=== PATIENT | male | born 1975 | race Caucasian/White ===

== ENCOUNTER 2025-05-27 19:45 | Outpatient (OUT) | payer OTHER, SELFPAY | END 2025-05-27 19:46 | disposition home or self-care (01) | LOC: SLEEP 19:45 | PROVIDERS: PCP Otolaryngology; Visit Provider Otolaryngology | DX: G47.33 Obstructive sleep apnea (adult) (pediatric) (principal); G25.81 Restless legs syndrome; F51.01 Primary insomnia | CPT/HCPCS: 95810 ==

== ENCOUNTER 2025-07-02 19:44 | Outpatient (OUT) | payer OTHER, SELFPAY ==
--- OUTSIDE RECORDS SUMMARY | 2014-07-31 16:30 | XMS_ITS | Encounter Summary ---
Author Organization [facility] Address [address], [address] [place] [address] Care Team Providers Care Marketing Proposal Coordinator Name Role Phone Derrick Berrois MD Primary Care Provider Wisam ble Encounter Details Date Type Department Care Team (Late st Contact Info) Description 07/31/2014 4:30 PM EDT Hospital Encounter [facility] [address] [place] [address] Derrick Berrios [place] [address] [place] [id number] Social History Tobacco Use Types Packs/Day Years Used Date Smoking Tobacco: Never Smokeless Tobacco: Never Alcohol Use Standard Drinks/Week Comments No 0 (1 standard drink = 0.6 oz pur e alcohol) [facility] Utilities Answer Date Recorded In the past 12 months has [employer] electric, gas, oil, or water [employer] threatened to shut off services in your home? No 06/16/2025 Overall Financial Resource Strain (CARDIA) Answe r Date Recorded How hard is it for you to pa y for the very basics like food, housing, medical care, and heating? Not hard at all 04/09/2024 PHQ-2 Answer Date Recorded PHQ-9 Total Score 0 03/18/2025 Hunger Vital Sign Answer Date Recorded Within the past 12 months, y ou worried that your food would run out before you got the money to buy more. Never true 06/16/20 25 Within the past 12 months, t he food you bought just didn't last and you didn't have money to get more. Never true 06/16/2025 PRAPARE - Transportation Answer Date Re corded In the past 12 months, has l ack of transportation kept you from medical appointments or from getting medications? No 05/21 In the past 12 months, has l ack of transportation kept you from meetings, work, or from getting things needed for daily living? No 06/16/2025 Housing Stability Vital Sign Answer Maicol e Recorded Unable to Pay for Housing in the Last Year Not o n file 04/09/2024 Number of Places Lived in the Last Year Not on f ile 04/09/2024 In the last 12 months, was t here a time when you did not have a steady place to sleep or slept in a detention (including now)? No 04/09/2024 Housing Stability Vital Sign Answer Maicol e Recorded In the last 12 months, was t here a time when you were not able to pay the mortgage or rent on time? No 06/16/2025 In the past 12 months, how m any times have you moved where you were living? 0 06/16/2025 At any time in the past 12 m [facility], were you homeless or living in a detention (including now)? No 06/16/2025 Food Insecurity Answer Date Recorded Within the past 12 months, y ou worried that your food would run out before you got the money to buy more. 1 06/16/2025 Within the past 12 months, t he food you bought just didn't last and you didn't have money to get more. 1 06/16/2025 Interpersonal Safety Domain Source: IP Abuse Scr eening Answer Date Recorded Physical abuse Denies 06/17/2025 Verbal abuse Denies 06/17/2025 Emotional abuse Denies 06/17/2025 Financial abuse Denies 06/17/2025 Sexual abuse Denies 06/17/2025 Sex and Gender Information Value Date Recorded Sex Assigned at Not on file Legal Sex Male 6:35 PM EST Gender Identity Not on file Sexual Orientation Not on file COVID-19 Exposure Response Date Recorded In the last 10 days, have yo u been in contact with someone who was confirmed or suspected to have Coronavirus/COVID-19? No / Unsure 02/15/2022 7:32 PM EDT documented as of this encounter Plan of Treatment Upcoming Encounters Date Type Department Care Team (Late st Contact Info) Description 07/15/2025 3:20 PM EDT [facility] [address] [place] [address] Viviana Granados, COMPUTER ENGINEERING TECHNOLOGIST - EVIDENCE SPECIALIST [address] [place] [address] 4 mo f/u 07/25/2025 10:30 AM EDT Office Visit 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 Abdominal bloating documented as of this encounter Visit Diagnoses Not on filedocumented in this encounter Care Teams Marketing Proposal Coordinator Relationship Specialty Start Date End Date Derrick Berrios MD PCP - General Family Medicine 11/07/12 11/24/14 documented as of this encounter
--- OUTSIDE RECORDS SUMMARY | 2025-06-16 13:29 | XMS_ITS | Encounter Summary ---
Author Organization [employer] [facility] Address [address], [address] [place] [address] Care Team Providers Care Tire Service Technician Name Role Phone Derrick Ram MD Primary Care Provider + Reason for Visit * Reason Comments Vomiting Abdominal Pain Pt reports diffuse a bdominal pain started last night, worsening today, radiating up to left side of chest and shoulder. Hurts to take a deep breath. Pt reports he started vomiting today. * Auth/Cert (Routine) Specialty Diagnoses / Procedures Referred By Christina t Referred To Contact Diagnoses Small bowel obstruction (HCC) Kelsi Cameron MD [address] [place] [address] Phone: tel: fax: [employer] [address] [place] [address] Referral ID Status Reason Start Date Expiration Date Visits Re quested Visits Authorized [id number] 1 1 Encounter Details Date Type Department Care Team (Latest Contact Info) Description 06/16/2025 1:29 PM EDT - 06/18/2025 11:29 AM EDT Hospital Encounter [facility] [address] [id number] Ana Garcia MD [facility] [place] [phone] Kelsi Cameron MD [address] [place] [address] Aries Aragon DO [address] [place], [place] [id number] Small bowel obstruction (HCC) (Primary Dx) Discharge Disposition: Home or Self Care Social History Tobacco Use Types Packs/Day Years Used Date Smoking Tobacco: Never Smokeless Tobacco: Never Alcohol Use Standard Drinks/Week Comments No 0 (1 standard drink = 0.6 oz pur e alcohol) [facility] Utilities Answer Date Recorded In the past 12 months has th e electric, gas, oil, or water company threatened to shut off services in your [...] place to sleep or slept in a retirement (including now)? No 04/09/2024 Housing Stability Vital Sign Answer Maicol e Recorded In the last 12 months, was t here a time when you were not able to pay the mortgage or rent on time? No 06/16/2025 In the past 12 months, how m any times have you moved where you were living? 0 06/16/2025 At any time in the past 12 m [facility], were you homeless or living in a retirement (including now)? No 06/16/2025 Food Insecurity Answer [...] on file Sexual Orientation Not on file documented as of this encounter Last Filed Vital Signs Vital Sign Reading Time Taken Comments Blood Pressure 113/77 06/18/2025 8:49 AM EDT Pulse 71 06/18/2025 8:49 AM EDT Temperature 36.6 C (97.9 F) 06/18/2025 8:49 AM EDT Respiratory Rate 16 06/18/2025 8:49 AM EDT Oxygen Saturation 96% 06/18/2025 8:49 AM EDT Inhaled Oxygen Concentration - - Weight 110 kg (242 lb 8.1 oz) 06/18/2025 6:00 AM EDT Height 195.6 cm (6' 5 ) 06/16/2025 1:38 PM EDT Body Mass Index 28.76 06/16/2025 1:38 PM EDT documented in this encounter Discharge Summaries * Unique Bradley PA - 06/18/2025 8:00 AM EDT Images from the original note were not included. [facility] Office: [phone] Charlie Aragon DO, Osmin Duarte DO, Jose R Vines DO, Maxwell Juarez, DO, Yuko Solis MD, Janelle Leyva MD, Gus Bolivar MD, Sarah Ashton MD, Al Gardner MD, Juan De Luna MD, Fede Carroll MD, Bill Plummer, DO, Aries Aragon, DO, Michelle Guerra MD, Juan Carlos Phan, DO, Tiana Cardoza MD, Alma Rosa Bryan MD, Shree Hartley MD, Jaylen Rodriguez MD, Niraj Bruce MD,Ale Chatterjee MD, Elizabeth Dewitt MD, Camilo Delgadillo MD, Tulio Vega MD, Melo Lamb, DO,Renate Ho MD, Renee Alvarez DO, Vinicius Sinclair MD, Manoj Bang MD, Bill Mejia MD, Thelma Mejia MD, Erica Rosenberg MD, Susy Benton, BILINGUAL LOAN PROCESSOR, Beth Gómez, BILINGUAL LOAN PROCESSOR, Melo No, BILINGUAL LOAN PROCESSOR, Elizabeth Heredia, DNP, Nora Ron, BILINGUAL LOAN PROCESSOR, Brooke Sullivan, BILINGUAL LOAN PROCESSOR, Abida Concepcion, BILINGUAL LOAN PROCESSOR, Arianne Glover, BILINGUAL LOAN PROCESSOR, Amina Conklin PAJoelC, Loly Cifuentes, BILINGUAL LOAN PROCESSOR, Christie Corrales, BILINGUAL LOAN PROCESSOR, Christine Landry, BILINGUAL LOAN PROCESSOR, Zora Gutierrez, BILINGUAL LOAN PROCESSOR, Rosalino Stanton PA-C, Unique Bradley PAJoelC, Stefania Ely, BILINGUAL LOAN PROCESSOR, Sarika Dillon, [facility], Raissa Trujillo, BILINGUAL LOAN PROCESSOR,Sho Hand, BILINGUAL LOAN PROCESSOR [facility] IN-PATIENT SERVICE [facility] Discharge Summary Patient ID: Robert Moe : 1975 ACCOUNT: [id number] Patient's PCP: Derrick Ram MD Admit Date: 06/16/2025 Discharge Date: 06/18/2025 Length of Stay: 2 Code Status: Full Code Admitting Physician: Kelsi Cameron MD Discharge Physician: CHRIS Davis Active Discharge Diagnoses: Hospital Problem Lists: Principal Problem: Small bowel obstruction (HCC) Active Problems: HTN (hypertension), benign Resolved Problems: * No resolved hospital problems. * Admission Condition: poor Discharged Condition: good Hospital Stay: Hospital Course: Robert Moe is a 49 y.o. male who was admitted for the management of Small bowel obstruction (HCC) , presented to ER with Vomiting and Abdominal Pain (Pt reports diffuse abdominal pain started last night, worsening today, radiating up to left side of chest and shoulder. Hurts to take a deep breath. Pt reports he started vomiting today. ) 49 year old male presented to the emergency department with diffuse abdominal pain and emesis and was found to have small bowel obstruction. NGT was placed and patient had bowel rest. NGT was removedafter SBO resolved and slowly advanced diet with no issues. Following small bowel follow through patient had many bowel movements and flatus. Patient remained hemodynamically stable throughout stay. Patient is eager for discharge to home. Patient denies any other questions or concerns at this time. Significant therapeutic interventions: NGT, bowel rest Significant Diagnostic Studies: Labs: Hematology: Recent Labs 06/16/25141906/16/25 2235 06/17/25 0653 WBC 12.1* 7.8 7.0 RBC 6.44* 5.55 5.46 HGB 18.9* 16.4 16.0 HCT 55.7* 48.3 47.4 MCV 86.4 87.1 86.8 MCH 29.3 29.5 29.3 MCHC 33.9 33.9 33.7 RDW 14.6 14.4 14.7 PLT 231 203 191 MPV 8.3 8.3 8.3 Chemistry: Recent Labs 06/16/25 14206/17/25 0653 NA 136 140 K 4.5 3.9 CL 101 105 CO2 22 25 GLUCOSE 108* 100* BUN 20 20 CREATININE 1.1 1.1 MG 2.0 -- ANIONGAP 13 10 LABGLOM 83 83 CALCIUM 10.4 8.9 TROPHS <6 -- Recent Labs 06/16/25 14206/17/25 0653 AST 25 15 ALT 48 31 ALKPHOS 95 69 BILITOT 0.9 0.7 ABG:No results found for: POCPH , PHART , PH , POCPCO2 , FJL0TMJ , PCO2 , POCPO2 , PO2ART , PO2 , POCHCO3 , OKY9BVP , HCO3 , NBEA , PBEA , BEART , BE , THGBART , THB , VVU7OBV , [id number] , I8EXRIEI , O2SAT , FIO2 No results found for: SPECIAL No results found for: CULTURE Radiology: FL SMALL BOWEL FOLLOW THROUGH ONLY Result Date: 06/17/2025 1. Findings above which can be seen with partial small bowel obstruction or small-bowel ileus. Normal transit time to the terminal ileum. 2. Bibasilar atelectasis, right greater than left. 3. NG tubewith distal tip overlying the left upper quadrant likely within the body/fundus of the stomach. XR ABDOMEN (KUB) (SINGLE AP VIEW) Result Date: 06/16/2025 Interval enteric tube placement with tip in the gastric body region. Persistent small bowel obstruction. CT CHEST ABDOMEN PELVIS W CONTRAST Additional Contrast? None Result Date: 06/16/2025 1. Small bowel obstruction with possible transition point in the left lower quadrant of the abdomen. No obvious mass lesions are seen. 2. No acute cardiopulmonary process. 3. Scattered left-sided colonic diverticula. Consultations: Consults: Final Specialist Recommendations/Findings: IP CONSULT TO HOSPITALIST IP CONSULT TO GENERAL SURGERY The patient was seen and examined on day of discharge and this discharge summary is in conjunction with any daily progress note from day of discharge. Discharge plan: Disposition: Home Physician Follow Up: No follow-up provider specified. Requiring Further Evaluation/Follow Up POST HOSPITALIZATION/Incidental Findings: none Diet: regular diet Activity: As tolerated Instructions to Patient: Discharge Medications: Medication List ASK your doctor about these medications fluticasone 50 MCG/ACT nasal spray Commonly known as: FLONASE 2 sprays by Each Nostril route daily gabapentin 600 MG tablet Commonly known as: NEURONTIN TAKE 1 TABLET BY MOUTH 2 TIMES A DAY FOR 90 DAYS levocetirizine 5 MG tablet Commonly known as: XYZAL Take 1 tablet by mouth nightly lisinopril 5 MG tablet Commonly known as: PRINIVIL;ZESTRIL take 1 AND 1/2 tablets by mouth once daily multivitamin Tabs tablet omeprazole 20 MG delayed release capsule Commonly known as: PRILOSEC Take 1 capsule by mouth 2 times daily rOPINIRole 4 MG extended release tablet Commonly known as: REQUIP XL Take 1 tablet by mouth nightly sertraline 50 MG tablet Commonly known as: ZOLOFT Take 1 tablet by mouth daily Time spent on discharge is 31 mins in patient examination, evaluation, counseling as well as medication reconciliation, prescriptions for required medications, discharge plan and follow up. Electronically signed by CHRIS Davis 06/18/2025 8:01 AM Thank you Derrick Blood MD for the opportunity to be involved in this patient's care. Cosigned by Aries Aragon DO at 06/18/2025 11:58 AM EDT documented in this encounter Medications at Time of Discharge Multiple Vitamin (MULTIVITAMIN) TABS tablet Take 1 tablet by mouth daily levocetirizine (XYZAL) 5 MG tabletIndications :Seasonal allergic reaction Take 1 tablet by mouth nightly 90 tablet 1 04/22/2025 10/19/2025 gabapentin (NEURONTIN) 600 MG tabletIndications :RLS (restless legs syndrome),Numbnes s and tingling of both legs TAKE 1 TABLET BY MOUTH 2 TIMES A DAY FOR 90 DAYS 180 tablet 04/15/2025 10/12/2025 lisinopril (PRINIVIL;ZESTRIL ) 5 MG tabletIndications :HTN (hypertension), benign take 1 AND 1/2 tablets by mouth once daily 135 tablet 03/18/2025 omeprazole (PRILOSEC) 20 MG delayed release capsuleIndication s:Right upper quadrant abdominal pain,Flatulence, eructation and gas pain Take 1 capsule by mouth 2 times daily 180 capsule 1 03/18/2025 09/14/2025 documented as of this encounter Progress Notes * Unique Bradley PA - 06/18/2025 7:32 AM EDT Images from the original note were not included. [facility] Office: [phone] Charlie Aragon DO, Osmin Duarte DO, Jose R Vines DO, Maxwell Juarez DO, Yuko Solis MD, Janelle Leyva MD, Gus Bolivar MD, Sarah Ashton MD, Al Gardner MD, Juan De Luna MD, Fede Carroll MD, Bill Plummer DO, Aries Aragon DO, Michelle Guerra MD, Juan Carlos Phan DO, Tiana Cardoza MD, Alma Rosa Bryan MD, Shree Hartley MD, Jaylen Rodriguez MD, Niraj Bruce MD,Ale Chatterjee MD, Elizabeth Dewitt MD, Camilo Delgadillo MD, Tulio Vega MD, Melo Lamb DO,Renate Ho MD, Renee Alvarez DO, Vinicius Sinclair MD, Manoj Bang MD, Bill Mejia MD, Thelma Mejia MD, Erica Rosenberg MD, Susy Benton, BILINGUAL LOAN PROCESSOR, Beth Gómez, BILINGUAL LOAN PROCESSOR, Melo No, BILINGUAL LOAN PROCESSOR, Elizabeth Heredia, [facility], Nora Ron, BILINGUAL LOAN PROCESSOR, Brooke Sullivan, BILINGUAL LOAN PROCESSOR, Abida Concepcion, BILINGUAL LOAN PROCESSOR, Arianne Glover, BILINGUAL LOAN PROCESSOR, Amina Conklin, PA-C, Loly Cifuentes, BILINGUAL LOAN PROCESSOR, Christie Corrales, BILINGUAL LOAN PROCESSOR, Christine Landry, BILINGUAL LOAN PROCESSOR, Zora Gutierrez, BILINGUAL LOAN PROCESSOR, Rosalino Stanton, PA-C, Unique Bradley, PA-C, Stefania Ely, BILINGUAL LOAN PROCESSOR, Sarika Dillon, FLEET MAINTENANCE MANAGER, Raissa Trujillo, BILINGUAL LOAN PROCESSOR,Sho Hand, BILINGUAL LOAN PROCESSOR [facility] IN-PATIENT SERVICE [facility] Progress Note 06/18/2025 7:32 AM Name: Robert Moe Acct: [id number] Room: [address] [place] [address] Day: 2 Admit Date: 06/16/2025 1:29 PM PCP: Derrick Ram MD Code Status: Full Code Subjective: 49 year old male with past medical history of anxiety, hypertension and restless legs syndrome who presented to the emergency department with diffuse abdominal pain and 2 episodes of emesis is admitted to the hospital for the management of small bowel obstruction. Patient does have a history of cholecystectomy in February 2024. Patient seen and examined at bedside, patient denies any concerns at this time, patient is eager for discharge. Patient has been tolerating liquid diet and is ready to advance diet to solids. Patientstates he did eat yvonne bread last night with no issues. Patient reports passing gas throughout the night. Patient denies any chest pain, shortness of breath, abdominal pain or calf pain. Patient denies any questions or concerns at this time. Patient is understanding and agreeable to plan. Medications: Allergies: Allergies Allergen Reactions Codeine Current Meds: Scheduled Meds: sodium chloride 80 mL IntraVENous Once gabapentin 600 mg Oral BID cetirizine 5 mg Oral Daily lisinopril 7.5 mg Oral Daily pantoprazole 40 mg Oral QAM AC rOPINIRole 4 mg Oral Nightly sertraline 50 mg Oral Daily sodium chloride flush 5-40 mL IntraVENous 2 times per day enoxaparin 30 mg SubCUTAneous BID LORazepam 0.5 mg IntraVENous Once Continuous Infusions: sodium chloride PRN Meds: diatrizoate meglumine-sodium, fluticasone, morphine, sodium chloride flush, sodium chloride, potassium chloride OR potassium alternative oral replacement OR potassium chloride, magnesium sulfate, ondansetron OR ondansetron, polyethylene glycol, acetaminophen OR acetaminophen Data: Vitals: BP 118/77 Pulse 82 Temp 98.4 ??F (36.9 ??C) (Oral) Resp 16 Ht 1.956 m (6' 5 ) Wt 110 kg (242 lb 8.1 oz) SpO2 97% BMI 28.76 kg/m?? Temp (24hrs), Av.6 ??F (37 ??C), Min:98.4 ??F (36.9 ??C), Max:98.8 ??F (37.1 ??C) No results for input(s): POCGLU in the last 72 hours. I/O (24Hr): Intake/Output Summary (Last 24 hours) at 06/18/2025 0732 Last data filed at 06/18/2025 0637 Gross per 24 hour Intake 1020 ml Output -- Net 1020 ml Labs: Hematology: Recent Labs 06/16/25 1420 06/16/25 2235 06/17/25 0653 WBC 12.1* 7.8 7.0 RBC 6.44* 5.55 5.46 HGB 18.9* 16.4 16.0 HCT 55.7* 48.3 47.4 MCV 86.4 87.1 86.8 MCH 29.3 29.5 29.3 MCHC 33.9 33.9 33.7 RDW 14.6 14.4 14.7 PLT 231 203 191 MPV 8.3 8.3 8.3 Chemistry: Recent Labs 06/16/25 1420 06/17/25 0653 NA 136 140 K 4.5 3.9 CL 101 105 CO2 22 25 GLUCOSE 108* 100* BUN 20 20 CREATININE 1.1 1.1 MG 2.0 -- ANIONGAP 13 10 LABGLOM 83 83 CALCIUM 10.4 8.9 TROPHS <6 -- Recent Labs 06/16/25 1420 06/17/25 0653 AST 25 15 ALT 48 31 ALKPHOS 95 69 BILITOT 0.9 0.7 ABG:No results found for: POCPH , PHART , PH , POCPCO2 , PLY0CGX , PCO2 , POCPO2 , PO2ART , PO2 , POCHCO3 , FXK9YCY , HCO3 , NBEA , PBEA , BEART , BE , THGBART , THB , SOK0VQH , [id number] , [id number] , O2SAT , FIO2 No results found for: SPECIAL No results found for: CULTURE Radiology: FL SMALL BOWEL FOLLOW THROUGH ONLY Result Date: 06/17/2025 1. Findings above which can be seen with partial small bowel obstruction or small-bowel ileus. Normal transit time to the terminal ileum. 2. Bibasilar atelectasis, right greater than left. 3. NG tubewith distal tip overlying the left upper quadrant likely within the body/fundus of the stomach. XR ABDOMEN (KUB) (SINGLE AP VIEW) Result Date: 06/16/2025 Interval enteric tube placement with tip in the gastric body region. Persistent small bowel obstruction. CT CHEST ABDOMEN PELVIS W CONTRAST Additional Contrast? None Result Date: 06/16/2025 1. Small bowel obstruction with possible transition point in the left lower quadrant of the abdomen. No obvious mass lesions are seen. 2. No acute cardiopulmonary process. 3. Scattered left-sided colonic diverticula. Physical Examination: General appearance: alert, cooperative and no distress Mental Status: oriented to person, place and time and normal affect Lungs: clear to auscultation bilaterally, normal effort Heart: regular rate and rhythm, no murmur Abdomen: soft, nontender, nondistended, normal bowel sounds Extremities: no edema, redness, tenderness in the calves Skin: no gross lesions, rashes, induration Assessment: Hospital Problems Last Modified POA * (Principal) Small bowel obstruction (HCC) 06/16/2025 Yes HTN (hypertension), benign 06/17/2025 Yes Plan: Partial small bowel obstruction Resolved; Advance diet as tolerated General Surgery following Antiemetics and pain control as needed Continue to monitor intake/output Continue to encourage ambulation Essential hypertension Continue lisinopril Anxiety/depression Continue home medications RLS Continue Requip GERD Continue PPI Seasonal allergies Continue home medications DVT/PE prophylaxis: Lovenox Will plan to discharge home today if okay by general surgery Medical Decision Making: CHRIS Lau 06/18/2025 7:32 AM Cosigned by Aries Aragon DO at 06/18/2025 11:58 AM EDT Associated attestation - Aries Aragon DO - 06/18/2025 11:58 AM EDT Attending Supervising Physician's Attestation Statement The patient is a 49 y.o. male. I have performed a physical examination of the patient. I discussed the case with the physician hospital clinic assistant. Chart reviewed. I have personally seen the patient and completed a physical exam. Laboratory data, imaging review. Vitals are as follow: Vitals: 06/17/25 1101 06/17/25 2111 06/18/25 0600 06/18/25 0849 BP: 129/87 118/77 113/77 Pulse: 81 82 71 Resp: 16 16 16 Temp: 98.8 ??F (37.1 ??C) 98.4 ??F (36.9 ??C) 97.9 ??F (36.6 ??C) TempSrc: Oral Oral Oral SpO2: 94% 97% 96% Weight: 110 kg (242 lb 8.1 oz) Height: Patient seen and examined, case discussed with physician hospital clinic assistant. Patient's at the bedside. Case also discussed with general surgery. Patient is doing very well and tolerating a diet. At this point in time he can be discharged home with outpatient follow-up. Impression/Plan Partial small bowel obstruction Resolved Diet as tolerated Essential hypertension Continue lisinopril Anxiety/depression Continue home medications Restless leg syndrome Continue Requip Gastroesophageal reflux disease Continue PPI Discharge home * Ivett Mayo PT - 06/17/2025 11:40 AM EDT Images from the original note were not included. Physical Therapy Physical Therapy Cancel Note DATE: 06/17/2025 NAME: Robert Moe : 1975 Patient not seen this date for Physical Therapy due to: Per OT, pt up independent in room and bathroom. Pt denies concerns and is at baseline functional level with no acute PT needs. D/C PT * Hailee Hu OT - 06/17/2025 11:36 AM EDT Images from the original note were not included. Occupational Therapy [facility] Occupational Therapy Not Seen Note DATE: 06/17/2025 NAME: Robert Moe : 1975 Patient not seen this date for Occupational Therapy due to: Screen this date with Pt up in bathroom IND upon room entry. Patient at baseline functional level with no acute OT needs. Will defer OT evaluation at this time. Please reorder OT if future needs arise. * Jaya Zhao - 06/17/2025 11:30 AM EDT 06/17/25 1130 Encounter Summary Service Provided For Patient Last Encounter 06/17/25 Spiritual/Emotional needs Type (volunteer) * Unique Bradley PA - 06/17/2025 8:12 AM EDT Images from the original note were not included. [facility] Office: [phone] Charlie Aragon DO, Osmin Duarte DO, Jose R Vines DO, Maxwell Juarez DO, Yuko Solis MD, Janelle Leyva MD, Gus Bolivar MD, Sarah Ashton MD, Al Gardner MD, Juan De Luna MD, Fede Carroll MD, Bill Plummer DO, Aries Aragon DO, Michelle Guerra MD, Juan Carlos Phan DO, Tiana Cardoza MD, Alma Rosa Bryan MD, Shree Hartley MD, Jaylen Rodriguez MD, Niraj Bruce MD,Ale Chatterjee MD, Elizabeth Dewitt MD, Camilo Delgadillo MD, Tulio Vega MD, Melo Lamb DO,Renate Ho MD, Renee Alvarez DO, Vinicius Sinclair MD, Manoj Bang MD, Bill Mejia MD, Thelma Mejia MD, Erica Rosenberg MD, Susy Benton CNP, Beth Gómez CNP, Melo No, BILINGUAL LOAN PROCESSOR, Elizabeth Heredia, LUL, Nora Ron, BILINGUAL LOAN PROCESSOR, Brooke Sullivan, BILINGUAL LOAN PROCESSOR, Abida Concepcion, BILINGUAL LOAN PROCESSOR, Arianne Glover BILINGUAL LOAN PROCESSOR, CONRAD GillespieC, Loly Cifuentes, BILINGUAL LOAN PROCESSOR, Christie Corrales, BILINGUAL LOAN PROCESSOR, Christine Landyr, BILINGUAL LOAN PROCESSOR, Zora Gutierrez, BILINGUAL LOAN PROCESSOR, CONRAD RamosC, Unique Bradley PA-C, Stefania Ely, BILINGUAL LOAN PROCESSOR, Sarika Dillon, FLEET MAINTENANCE MANAGER, Raissa Trujillo CNP, Sho Hand CNP [facility] IN-PATIENT SERVICE [facility] Progress Note 06/17/2025 8:13 AM Name: Robert Moe Acct: [id number] Room: 316/316-01 Day: 1 Admit Date: 06/16/2025 1:29 PM PCP: Derrick Ram MD Code Status: Full Code Subjective: 49 year old male with past medical history of anxiety, hypertension and restless legs syndrome who presented to the emergency department with diffuse abdominal pain and 2 episodes of emesis is admitted to the hospital for the management of small bowel obstruction. Patient does have a history of cholecystectomy in February 2024. Patient seen and examined in room, family at bedside, patient is eager to have NG tube removed. Patient states he has had diarrhea multiple times following small bowel follow-through today. Patient states he was passing gas prior to small bowel follow-through, has not since. Patient denies any headache, chest pain, abdominal pain or shortness of breath. Patient denies any other questions or concerns at this time. Patient is understanding and agreeable to plan. Medications: Allergies: Allergies Allergen Reactions Codeine Current Meds: Scheduled Meds: sodium chloride 80 mL IntraVENous Once gabapentin 600 mg Oral BID cetirizine 5 mg Oral Daily lisinopril 7.5 mg Oral Daily pantoprazole 40 mg Oral QAM AC rOPINIRole 4 mg Oral Nightly sertraline 50 mg Oral Daily sodium chloride flush 5-40 mL IntraVENous 2 times per day enoxaparin 30 mg SubCUTAneous BID LORazepam 0.5 mg IntraVENous Once Continuous Infusions: sodium chloride sodium chloride 75 mL/hr at 06/16/252048 PRN Meds: fluticasone, morphine, sodium chloride flush, sodium chloride, potassium chloride OR potassium alternative oral replacement OR potassium chloride, magnesium sulfate, ondansetron OR ondansetron, polyethylene glycol, acetaminophen OR acetaminophen Data: Vitals: BP 104/69 Pulse 81 Temp 98.8 ??F (37.1 ??C) (Oral) Resp 16 Ht 1.956 m (6' 5 ) Wt 108 kg (238 lb 1.6 oz) SpO2 93% BMI 28.23 kg/m?? Temp (24hrs), Av ??F (37.2 ??C), Min:98.8 ??F (37.1 ??C), Max:99.1 ??F (37.3 ??C) No results for input(s): POCGLU in the last 72 hours. I/O (24Hr): Intake/Output Summary (Last 24 hours) at 06/17/2025 0813 Last data filed at 06/17/2025 0627 Gross per 24 hour Intake 1000 ml Output 700 ml Net 300 ml Labs: Hematology: Recent Labs 06/16/25 1420 06/16/25 2235 06/17/25 0653 WBC 12.1* 7.8 7.0 RBC 6.44* 5.55 5.46 HGB 18.9* 16.4 16.0 HCT 55.7* 48.3 47.4 MCV 86.4 87.1 86.8 MCH 29.3 29.5 29.3 MCHC 33.9 33.9 33.7 RDW 14.6 14.4 14.7 PLT 231 203 191 MPV 8.3 8.3 8.3 Chemistry: Recent Labs 06/16/25 1420 06/17/25 0653 NA 136 140 K 4.5 3.9 CL 101 105 CO2 22 25 GLUCOSE 108* 100* BUN 20 20 CREATININE 1.1 1.1 MG 2.0 -- ANIONGAP 13 10 LABGLOM 83 83 CALCIUM 10.4 8.9 TROPHS <6 -- Recent Labs 06/16/25 1420 06/17/25 0653 AST 25 15 ALT 48 31 ALKPHOS 95 69 BILITOT 0.9 0.7 ABG:No results found for: POCPH , PHART , PH , POCPCO2 , IVU7SVD , PCO2 , POCPO2 , PO2ART , PO2 , POCHCO3 , [id number] , HCO3 , NBEA , PBEA , BEART , BE , THGBART , THB , QAJ3SDA , PLQQ0EIZ , M1OYPAWR , O2SAT , FIO2 No results found for: SPECIAL No results found for: CULTURE Radiology: XR ABDOMEN (KUB) (SINGLE AP VIEW) Result Date: 06/16/2025 Interval enteric tube placement with tip in the gastric body region. Persistent small bowel obstruction. CT CHEST ABDOMEN PELVIS W CONTRAST Additional Contrast? None Result Date: 06/16/2025 1. Small bowel obstruction with possible transition point in the left lower quadrant of the abdomen. No obvious mass lesions are seen. 2. No acute cardiopulmonary process. 3. Scattered left-sided colonic diverticula. Physical Examination: General appearance: alert, cooperative and no distress, NGT secured at nare on intermittent suction Mental Status: oriented to person, place and time and normal affect Lungs: clear to auscultation bilaterally, normal effort Heart: regular rate and rhythm, no murmur Abdomen: soft, nontender, nondistended, normal bowel sounds, no masses Extremities: no edema, redness, tenderness in the calves Skin: no gross lesions, rashes, induration Assessment: Hospital Problems Last Modified POA * (Principal) Small bowel obstruction (HCC) 06/16/2025 Yes Plan: Small bowel obstruction NPO; continue bowel rest today; advance diet per general surgery CT showed small bowel obstruction with possible transition point in the left lower quadrant of the abdomen Small bowel follow-through per general surgery; showed partial small bowel obstruction or small bowel ileus, normal transit time to the terminal ileum General surgery consulted; appreciate recommendations NG tube decompression with low wall intermittent suction Antiemetics and pain control as needed Serial abdominal exams Monitor daily labs Continue to monitor intake/output Continue to encourage ambulation Essential hypertension Continue lisinopril Anxiety/depression Continue home medications RLS Continue Requip GERD Continue PPI Seasonal allergies Continue home medications DVT/PE prophylaxis: Lovenox Medical Decision Making: CHRIS Lau 06/17/2025 8:13 AM Cosigned by Aries Aragon DO at 06/17/2025 1:08 PM EDT Associated attestation - Aries Aragon DO - 06/17/2025 1:08 PM EDT Attending Supervising Physician's Attestation Statement The patient is a 49 y.o. male. I have performed a physical examination of the patient. I discussed the case with the physician hospital clinic assistant. Chart reviewed. I have personally seen the patient and completed a physical exam. Laboratory data, imaging review. Vitals are as follow: Vitals: 06/17/25 0011 06/17/25 0600 06/17/25 1050 06/17/25 1101 BP: 104/69 129/87 Pulse: 81 81 Resp: 16 18 16 Temp: 98.8 ??F (37.1 ??C) 98.8 ??F (37.1 ??C) TempSrc: Oral SpO2: 93% 94% Weight: 108 kg (238 lb 1.6 oz) Height: Patient seen and examined. at the bedside. Multiple questions answered. Small bowel follow-through reviewed. Case discussed with surgery. At this point in time as contrast has progressed to the terminal ileum we will discontinue NG tube. Will advance diet and I anticipate he can be discharged home tomorrow. Impression/Plan Partial small bowel obstruction Clinically resolved Small bowel follow-through reviewed Ileus secondary to above Continue liquid diet, advance diet as tolerated Essential hypertension Continue lisinopril Anxiety/depression Continue home medications Restless leg syndrome Continue Requip Gastroesophageal reflux disease Continue PPI * Сергей Gomez IV, - 06/17/2025 6:50 AM EDT Images from the original note were not included. General Surgery: Daily Progress Note PATIENT NAME: Robert Moe TODAY'S DATE: 06/17/2025, 6:51 AM CC: Abdominal pain SUBJECTIVE: Patient seen and examined at bedside this morning. No acute events overnight. Patient is nondistressed. Patient is afebrile, hemodynamically stable, on room air. NGT is secured at nare on intermittent suction. Approximately 700 cc of green fluid observed in canister. Patient does endorse flatus. Denies bowel movements or nausea. Patient is ambulating. OBJECTIVE: VITALS: BP 104/69 Pulse 81 Temp 98.8 ??F (37.1 ??C) (Oral) Resp 16 Ht 1.956 m (6' 5 ) Wt 108 kg (238 lb 1.6 oz) SpO2 93% BMI 28.23 kg/m?? INTAKE/OUTPUT: Intake/Output Summary (Last 24 hours) at 06/17/2025 0651 Last data filed at 06/17/2025 0627 Gross per 24 hour Intake 1000 ml Output 700 ml Net 300 ml PHYSICAL EXAM: General Appearance: Lying comfortably in bed. No acute distress. HEENT: Atraumatic. Normocephalic. NGT secured at nare on intermittent suction. Heart: RRR. Nontachycardic. Lungs: Normal work of breathing. On room air. Abdomen: Soft, nondistended, nontender. Nonperitonitic. Extremities: Moving all extremities. Skin: Well-perfused. Psych: Appropriate. Radiology Review: XR ABDOMEN (KUB) (SINGLE AP VIEW) Result Date: 06/16/2025 Interval enteric tube placement with tip in the gastric body region. Persistent small bowel obstruction. CT CHEST ABDOMEN PELVIS W CONTRAST Additional Contrast? None Result Date: 06/16/2025 1. Small bowel obstruction with possible transition point in the left lower quadrant of the abdomen. No obvious mass lesions are seen. 2. No acute cardiopulmonary process. 3. Scattered left-sided colonic diverticula. ASSESSMENT: Active Hospital Problems Diagnosis Date Noted Small bowel obstruction (HCC) [K56.609] 06/16/2025 49 y.o. male who presented to the ED with abdominal pain with CT demonstrating small bowel obstruction. Plan: Patient doing well this morning. Abdominal exam is benign. Pain is controlled. 700 cc of green fluid in NGT canister. Will continue bowel rest today and order a small bowel follow-through. NPO. Lovenox for DVT prophylaxis. Continue to monitor intake/output. Continue to encourage ambulation. Monitor vital signs per unit standard. Attending Physician Statement I have discussed the case with Dr Reed, including pertinent history and exam findings with the resident. I have seen and examined the patient and the cintron elements of the encounter have been performed by me. I agree with the assessment, plan and orders as documented by the resident. Small bowel follow through was negative for complete obstruction. Patient had copious bowel movements today. Tolerated clears. Will advance to full liquids. Anticipate discharge home tomorrow. documented in this encounter Plan of Treatment Upcoming Encounters Date Type Department Care Team (Late st Contact Info) Description 07/15/2025 3:20 PM EDT Office Visit [facility] [address] [facility] 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 Abdominal bloating documented as of this encounter Procedures Procedure Name Priority Date/Time Associated Diagnosis Comments FL SMALL BOWEL FOLLOW THROUGH ONLY Routine 06/17/2025 9:24 AM EDT COMPREHENSIVE METABOLIC PANEL W/ REFLEX TO MG FOR LOW K STAT 06/17/2025 6:53 AM EDT CBC WITH AUTO DIFFERENTIAL STAT 06/17/2025 6:53 AM EDT CBC WITH AUTO DIFFERENTIAL Routine 06/16/2025 10:35 PM EDT XR ABDOMEN (KUB) (SINGLE AP VIEW) STAT 06/16/2025 7:[address] CHEST ABDOMEN PELVIS W CONTRAST STAT 06/16/2025 3:36 PM EDT CBC WITH AUTO DIFFERENTIAL STAT 06/16/2025 2:20 PM EDT TROPONIN STAT 06/16/2025 2:20 PM EDT MAGNESIUM STAT 06/16/2025 2:20 PM EDT LACTIC ACID STAT 06/16/2025 2:20 PM EDT COMPREHENSIVE METABOLIC PANEL STAT 06/16/2025 2:20 PM EDT EKG 12-LEAD STAT 06/16/2025 1:52 PM EDT documented in this encounter Results * FL SMALL BOWEL FOLLOW THROUGH ONLY (06/17/2025 9:24 AM EDT) Anatomical Region Laterality Modality Abdomen Computed Radiogr aphy 06/17/2025 9:27 AM EDT Impressions 06/17/2025 9:31 AM EDT 1. Findings above which can be seen with partial small bowel obstruction or small-bowel ileus. Normal transit time to the terminal ileum. 2. Bibasilar atelectasis, right greater than left. 3. NG tube with distal tip overlying the left upper quadrant likely within the body/fundus of the stomach. Narrative 06/17/2025 9:31 AM EDT EXAMINATION: SMALL BOWEL FOLLOW THROUGH SERIES 06/17/2025 TECHNIQUE: Small bowel follow through series was performed with overhead images. FLUOROSCOPY DOSE AND TYPE: Fluoro time: 0 Dose: 0 COMPARISON: Abdominal KUB from 06/16/2025, CT abdomen pelvis from 06/16/2025 HISTORY: ORDERING SYSTEM PROVIDED HISTORY: SBO TECHNOLOGIST PROVIDED HISTORY: SBO Reason for Exam: SBO, vomiting and abdominal pain 49-year-old male with small-bowel obstruction, vomiting, and abdominal pain FINDINGS: Computer Systems Technician image of the abdomen demonstrates mild gas and stool scattered throughout the visualized colonic segments. No abnormally dilated small bowel loops. Psoas shadows symmetric in appearance. NG tube traverses the GE junction with distal tip overlying the left upper quadrant likely within the body/fundus of the stomach. Bibasilar atelectasis, right greater than left. At 0 minutes, contrast is seen opacifying the stomach, duodenal C-loop and proximal small bowel/jejunal loops. At 15 minutes, contrast is seen opacifying the majority of the small bowel. Dilated small bowel loops with prominence of the valvuli conniventes are seen within the lower abdomen/upper pelvis. These measure up to 3.9 cm in caliber. At 30 minutes, there is further migration of contrast into small bowel loops. At 45 minutes, contrast is seen opacifying the stomach, entirety of the small bowel, and entirety of the colon to the level of the rectum. Small amount of contrast is seen distending the urinary bladder. There is normal transit time to the terminal ileum. No focal abnormality or stricture of the small bowel identified. Procedure Note Bulmaro Mckee MD - 06/17/2025 EXAMINATION: SMALL BOWEL FOLLOW THROUGH SERIES 06/17/2025 TECHNIQUE: Small bowel follow through series was performed with overhead images. FLUOROSCOPY DOSE AND TYPE: Fluoro time: 0 Dose: 0 COMPARISON: Abdominal KUB from 06/16/2025, CT abdomen pelvis from 06/16/2025 HISTORY: ORDERING SYSTEM PROVIDED HISTORY: SBO TECHNOLOGIST PROVIDED HISTORY: SBO Reason for Exam: SBO, vomiting and abdominal pain 49-year-old male with small-bowel obstruction, vomiting, and abdominalpain FINDINGS: Computer Systems Technician image of the abdomen demonstrates mild gas and stool scattered throughout the visualized colonic segments. No abnormally dilated small bowel loops. Psoas shadows symmetric in appearance. NG tube traversesthe GE junction with distal tip overlying the left upper quadrant likelywithin the body/fundus of the stomach. Bibasilar atelectasis, right greaterthan left. At 0 minutes, contrast is seen opacifying the stomach, duodenal C-loopand proximal small bowel/jejunal loops. At 15 minutes, contrast is seen opacifying the majority of the smallbowel. Dilated small bowel loops with prominence of the valvuli conniventes areseen within the lower abdomen/upper pelvis. These measure up to 3.9 cm incaliber. At 30 minutes, there is further migration of contrast into small bowelloops. At 45 minutes, contrast is seen opacifying the stomach, entirety of thesmall bowel, and entirety of the colon to the level of the rectum. Small amountof contrast is seen distending the urinary bladder. There is normal transit time to the terminal ileum. No focal abnormalityor stricture of the small bowel identified. IMPRESSION: 1. Findings above which can be seen with partial small bowel obstructionor small-bowel ileus. Normal transit time to the terminal ileum. 2. Bibasilar atelectasis, right greater than left. 3. NG tube with distal tip overlying the left upper quadrant likelywithin the body/fundus of the stomach. Dominick Reed DO IMG FLUOROSCOPY ORDERABLES Fi nal Result * (ABNORMAL) CBC with Auto Differential (06/17/2025 6:53 AM EDT) [facility] WBC 7.0 3.5 - 11.0 k/uL 06/17/2025 6:53 AM [facility] RBC 5.46 4.5 - 5.9 m/uL 06/17/2025 6:53 AM [facility] Hemoglobin 16.0 13.5 - 17.5 g/dL 06/17/2025 6:53 AM [facility] Hematocrit 47.4 41 - 53 % 06/17/2025 6:53 AM [facility] MCV 86.8 80 - 100 fL 06/17/2025 6:53 AM [facility] MCH 29.3 26 - 34 pg 06/17/2025 6:53 AM [facility] MCHC 33.7 31 - 37 g/dL 06/17/2025 6:53 AM [facility] RDW 14.7 12.5 - 15.4 % 06/17/2025 6:53 AM [facility] Platelets 191 140 - 450 k/uL 06/17/2025 6:53 AM [facility] MPV 8.3 6.0 - 12.0 fL 06/17/2025 6:53 AM [facility] Neutrophils % 66 36 - 66 % 06/17/2025 6:53 AM [facility] Lymphocytes % 22(L) 24 - 44 % 06/17/2025 6:53 AM EDT [facility] Monocytes % 8 2 - 11 % 06/17/2025 6:53 AM EDT [facility] Eosinophils % 3 1 - 4 % 06/17/2025 6:53 AM EDT [facility] Basophils % 1 0 - 2 % 06/17/2025 6:53 AM EDT [facility] Neutrophils Absolute 4.60 1.8 - 7.7 k/uL 06/17/2025 6:53 AM EDT [facility] Lymphocytes Absolute 1.50 1.0 - 4.8 k/uL 06/17/2025 6:53 AM EDT [facility] Monocytes Absolute 0.60 0.1 - 1.2 k/uL 06/17/2025 6:53 AM EDT [facility] Eosinophils Absolute 0.20 0.0 - 0.4 k/uL 06/17/2025 6:53 AM EDT [facility] Basophils Absolute 0.10 0.0 - 0.2 k/uL 06/17/2025 6:53 AM EDT [facility] Blood BLOOD SPECIMEN / Unknown 06/17/2025 6:53 AM EDT 06/17/2025 6:54 AM EDT us Kelsi Cameron MD HEMATOLOGY ORDERABLES [place] [address], [facility] [phone] [facility] [address] [place] [address], [facility] [phone] * (ABNORMAL) Comprehensive Metabolic Panel w/ Reflex to MG (06/17/2025 6:53 AM EDT) Sodium 140 136 - 145 mmol/L 06/17/2025 6:53 AM EDT [facility] Potassium 3.9 3.7 - 5.3 mmol/L 06/17/2025 6:53 AM [facility] Chloride 105 98 - 107 mmol/L 06/17/2025 6:53 AM [facility] CO2 25 20 - 31 mmol/L 06/17/2025 6:53 AM [facility] Anion Gap 10 9 - 16 mmol/L 06/17/2025 6:53 AM [facility] Glucose 100(H) 74 - 99 mg/dL 06/17/2025 6:53 AM [facility] BUN 20 6 - 20 mg/dL 06/17/2025 6:53 AM [facility] Creatinine 1.1 0.7 - 1.2 mg/dL 06/17/2025 6:53 AM [facility] Est, Glom Filt Rate 83 >60 mL/min/1.7 3m2 06/17/2025 6:53 AM [facility] Comment: These results are not intended for use in patients <18 years of age. eGFR results are calculated without a race factor using the 2020 CKD-EPI equation. Careful clinical correlation is recommended, particularly when comparing to results calculated using previous equations. The CKD-EPI equation is less accurate in patients with extremes of muscle mass, extra-renal metabolism of creatine, excessive creatine ingestion, or following therapy that affects renal tubular secretion. Calcium 8.9 8.6 - 10.4 mg/dL 06/17/2025 6:53 AM [facility] Total Protein 6.7 6.6 - 8.7 g/dL 06/17/2025 6:53 AM [facility] Albumin 4.0 3.5 - 5.2 g/dL 06/17/2025 6:53 AM [facility] Albumin/Globulin Ratio 1.5 1.0 - 2.5 06/17/2025 6:53 AM [facility] Total Bilirubin 0.7 0.0 - 1.2 mg/dL 06/17/2025 6:53 AM [facility] Alkaline Phosphatase 69 40 - 129 U/L 06/17/2025 6:53 AM EDT [facility] ALT 31 10 - 50 U/L 06/17/2025 6:53 AM EDT [facility] AST 15 10 - 50 U/L 06/17/2025 6:53 AM EDT [facility] Blood BLOOD SPECIMEN / Unknown 06/17/2025 6:53 AM EDT 06/17/2025 6:54 AM EDT us Kelsi Cameron MD CHEMISTRY ORDERABLES [place] [address], [facility] [phone] [facility] [address] [place] [address], [facility] [phone] * (ABNORMAL) CBC with Auto Differential (06/16/2025 10:35 PM EDT) WBC 7.8 3.5 - 11.0 k/uL 06/16/2025 10:35 PM EDT [facility] RBC 5.55 4.5 - 5.9 m/uL 06/16/2025 10:35 PM EDT [facility] Hemoglobin 16.4 13.5 - 17.5 g/dL 06/16/2025 10:35 PM EDT [facility] Hematocrit 48.3 41 - 53 % 06/16/2025 10:35 PM EDT [facility] MCV 87.1 80 - 100 fL 06/16/2025 10:35 PM EDT [facility] MCH 29.5 26 - 34 pg 06/16/2025 10:35 PM EDT [facility] MCHC 33.9 31 - 37 g/dL 06/16/2025 10:35 PM EDT [facility] RDW 14.4 12.5 - 15.4 % 06/16/2025 10:35 PM EDT [facility] Platelets 203 140 - 450 k/uL 06/16/2025 10:35 PM EDT [facility] MPV 8.3 6.0 - 12.0 fL 06/16/2025 10:35 PM EDT [facility] Neutrophils % 72(H) 36 - 66 % 06/16/2025 10:35 PM EDT [facility] Lymphocytes % 18(L) 24 - 44 % 06/16/2025 10:35 PM EDT [facility] Monocytes % 8 2 - 11 % 06/16/2025 10:35 PM EDT [facility] Eosinophils % 2 1 - 4 % 06/16/2025 10:35 PM EDT [facility] Basophils % 0 0 - 2 % 06/16/2025 10:35 PM EDT [facility] Neutrophils Absolute 5.70 1.8 - 7.7 k/uL 06/16/2025 10:35 PM EDT [facility] Lymphocytes Absolute 1.40 1.0 - 4.8 k/uL 06/16/2025 10:35 PM EDT [facility] Monocytes Absolute 0.60 0.1 - 1.2 k/uL 06/16/2025 10:35 PM EDT [facility] Eosinophils Absolute 0.10 0.0 - 0.4 k/uL 06/16/2025 10:35 PM EDT [facility] Basophils Absolute 0.00 0.0 - 0.2 k/uL 06/16/2025 10:35 PM T [facility] Blood BLOOD SPECIMEN / Unknown 06/16/2025 10:35 PM EDT 06/16/2025 10:36 PM EDT us Susy Benton 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 ORD ERABLES Final Result [place] [address] [place] [address], [facility] [phone] [facility] [address] [phone] * XR ABDOMEN (KUB) (SINGLE AP VIEW) (06/16/2025 7:06 PM EDT) Anatomical Region Laterality Modality Abdomen Computed Radiogr aphy 06/16/2025 8:43 PM EDT Impressions 06/16/2025 8:44 PM EDT Interval enteric tube placement with tip in the gastric body region. Persistent small bowel obstruction. Narrative 06/16/2025 8:44 PM EDT EXAMINATION: ONE SUPINE XRAY VIEW(S) OF THE ABDOMEN 06/16/2025 6:13 pm COMPARISON: 06/16/2025 HISTORY: ORDERING SYSTEM PROVIDED HISTORY: Placement of NG/OG Tube TECHNOLOGIST PROVIDED HISTORY: Placement of NG/OG Tube Reason for Exam: abdominal pain, ng tube placement FINDINGS: Interval enteric tube placement with tip terminating in the lateral proximal gastric body region. Persistent small bowel dilatation throughout the central abdomen. Procedure Note Mark Dumont MD - 06/16/2025 EXAMINATION: ONE SUPINE XRAY VIEW(S) OF THE ABDOMEN 06/16/2025 6:13 pm COMPARISON: 06/16/2025 HISTORY: ORDERING SYSTEM PROVIDED HISTORY: Placement of NG/OG Tube TECHNOLOGIST PROVIDED HISTORY: Placement of NG/OG Tube Reason for Exam: abdominal pain, ng tube placement FINDINGS: Interval enteric tube placement with tip terminating in the lateralproximal gastric body region. Persistent small bowel dilatation throughout the central abdomen. IMPRESSION: Interval enteric tube placement with tip in the gastric body region. Persistent small bowel obstruction. Kelsi Cameron MD IMG DIAGNOSTIC IMAGING ORDERAB LES Final Result * CT CHEST ABDOMEN PELVIS W CONTRAST Additional Contrast? None (06/16/2025 3:36 PM EDT) Anatomical Region Laterality Modality Chest, Abdomen, Pelvis, Hip Comp uted Tomography 06/16/2025 5:46 PM EDT Impressions 06/16/2025 5:51 PM EDT 1. Small bowel obstruction with possible transition point in the left lower quadrant of the abdomen. No obvious mass lesions are seen. 2. No acute cardiopulmonary process. 3. Scattered left-sided colonic diverticula. Narrative 06/16/2025 5:51 PM EDT EXAMINATION: CT OF THE CHEST, ABDOMEN, AND PELVIS WITH CONTRAST 06/16/2025 2:25 pm TECHNIQUE: CT of the chest, abdomen and pelvis was performed with the administration of intravenous contrast. Multiplanar reformatted images are provided for review. Automated exposure control, iterative reconstruction, and/or weight based adjustment of the mA/kV was utilized to reduce the radiation dose to as low as reasonably achievable. COMPARISON: None HISTORY: ORDERING SYSTEM PROVIDED HISTORY: diffuse abd pain, distention, vomiting, pain that radiates to the left upper chest TECHNOLOGIST PROVIDED HISTORY: diffuse abd pain, distention, vomiting, pain that radiates to the left upper chest Decision Support Exception - unselect if not a suspected or confirmed emergency medical condition->Emergency Medical Condition (MA) Reason for Exam: diffuse abd pain, distention, vomiting, pain that radiates to the left upper chest FINDINGS: Chest: Pulmonary Arteries: Main pulmonary artery is normal in caliber. Mediastinum: No evidence of mediastinal lymphadenopathy. The heart and pericardium demonstrate no acute abnormality. The thoracic aorta is normal in caliber. Lungs/pleura: Mild bilateral basilar atelectasis. Right-sided upper lobe fissural nodule measures 8 mm in size, abutting the transverse fissure, likely benign. No masses or consolidation. Soft Tissues/Bones: No acute bone or soft tissue abnormality. Abdomen Organs: Liver: Liver is normal. No focal lesions are seen. Spleen: Normal. Pancreas: Normal Gallbladder: Normal. Adrenal glands: Normal. No focal lesions are seen. CBD: Normal in caliber. Kidneys and ureters: Simple cortical cysts are seen the finding no further follow-up. There is no hydronephrosis or calculi. Ureters are non-dilated. Abdominal aorta and branches: Normal in caliber. IVC and portal vein: Normal in caliber. Urinary bladder: Normal wall thickness. GI/Bowel: Stomach is nondistended small bowel loops are dilated with air-fluid levels. Possible transition point is seen in the left lower quadrant of abdomen, with crowding of bowel loops suggesting interbody galarza. No obvious mass lesions are seen. Terminal ileal loops nondilated. Colonic bowel loops are nondilated. Scattered left-sided colonic diverticula are seen. Appendix is normal. Peritoneum/Retroperitoneum: Normal PELVIS Normal reproductive organs Bones/Soft Tissues: Normal No soft tissue swelling is seen. Procedure Note Rigo Washington MD - 06/16/2025 EXAMINATION: CT OF THE CHEST, ABDOMEN, AND PELVIS WITH CONTRAST 06/16/2025 2:25 pm TECHNIQUE: CT of the chest, abdomen and pelvis was performed with the administrationof intravenous contrast. Multiplanar reformatted images are provided forreview. Automated exposure control, iterative reconstruction, and/or weightbased adjustment of the mA/kV was utilized to reduce the radiation dose to aslow as reasonably achievable. COMPARISON: None HISTORY: ORDERING SYSTEM PROVIDED HISTORY: diffuse abd pain, distention,vomiting, pain that radiates to the left upper chest TECHNOLOGIST PROVIDED HISTORY: diffuse abd pain, distention, vomiting, pain that radiates to the leftupper chest Decision Support Exception - unselect if not a suspected or confirmed emergency medical condition->Emergency Medical Condition (MA) Reason for Exam: diffuse abd pain, distention, vomiting, pain thatradiates to the left upper chest FINDINGS: Chest: Pulmonary Arteries: Main pulmonary artery is normal in caliber. Mediastinum: No evidence of mediastinal lymphadenopathy. The heart and pericardium demonstrate no acute abnormality. The thoracic aorta is normalin caliber. Lungs/pleura: Mild bilateral basilar atelectasis. Right-sided upperlobe fissural nodule measures 8 mm in size, abutting the transverse fissure, likely benign. No masses or consolidation. Soft Tissues/Bones: No acute bone or soft tissue abnormality. Abdomen Organs: Liver: Liver is normal. No focal lesions are seen. Spleen: Normal. Pancreas: Normal Gallbladder: Normal. Adrenal glands: Normal. No focal lesions are seen. CBD: Normal in caliber. Kidneys and ureters: Simple cortical cysts are seen the finding nofurther follow-up. There is no hydronephrosis or calculi. Ureters arenon-dilated. Abdominal aorta and branches: Normal in caliber. IVC and portal vein: Normal in caliber. Urinary bladder: Normal wall thickness. GI/Bowel: Stomach is nondistended small bowel loops are dilated with air-fluid levels. Possible transition point is seen in the left lower quadrant of abdomen, with crowding of bowel loops suggesting interbodyshin. No obvious mass lesions are seen. Terminal ileal loops nondilated.Colonic bowel loops are nondilated. Scattered left-sided colonic diverticulaare seen. Appendix is normal. Peritoneum/Retroperitoneum: Normal PELVIS Normal reproductive organs Bones/Soft Tissues: Normal No soft tissue swelling is seen. IMPRESSION: 1. Small bowel obstruction with possible transition point in the leftlower quadrant of the abdomen. No obvious mass lesions are seen. 2. No acute cardiopulmonary process. 3. Scattered left-sided colonic diverticula. [facility] IMG CT ORDERABLES Final R esult * Troponin (06/16/2025 2:20 PM EDT) Troponin, High Sensitivity <6 0 - 22 ng/L 06/16/2025 2:20 PM EDT [facility] Comment:High Sensitivity Tro ponin values cannot be compared with other Troponin methodologies. Blood BLOOD SPECIMEN / Unknown 06/16/2025 2:20 PM EDT 06/16/2025 2:25 PM EDT [facility] CHEMISTRY ORDERABLES Raeann l Result [place] [address] [place] [address], [facility] [phone] [facility] [address] [place] [address], [facility] [phone] * Magnesium (06/16/2025 2:20 PM EDT) [facility] Magnesium 2.0 1.6 - 2.6 mg/dL 06/16/2025 2:20 PM EDT [facility] Blood BLOOD SPECIMEN / Unknown 06/16/2025 2:20 PM EDT 06/16/2025 2:25 PM EDT [facility] CHEMISTRY ORDERABLES Raeann l Result [place] [address] [place] [id number], [facility] [phone] [facility] [address] [place] [address], [facility] [phone] * Lactic Acid (06/16/2025 2:20 PM EDT) Lactic Acid 1.6 0.5 - 2.2 mmol/L 06/16/2025 2:20 PM EDT [facility] Blood BLOOD SPECIMEN / Unknown 06/16/2025 2:20 PM EDT 06/16/2025 2:25 PM EDT [facility] 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 ORDERABLES Raeann l Result [address] [place] [address], [facility] [phone] [facility] [id number] [place] [address], [facility] [phone] * (ABNORMAL) CMP (06/16/2025 2:20 PM EDT) Sodium 136 136 - 145 mmol/L 06/16/2025 2:20 PM EDT [facility] Potassium 4.5 3.7 - 5.3 mmol/L 06/16/2025 2:20 PM EDT [facility] Chloride 101 98 - 107 mmol/L 06/16/2025 2:20 PM EDT [facility] CO2 22 20 - 31 mmol/L 06/16/2025 2:20 PM EDT [facility] Anion Gap 13 9 - 16 mmol/L 06/16/2025 2:20 PM EDT [facility] Glucose 108(H) 74 - 99 mg/dL 06/16/2025 2:20 PM EDT [facility] BUN 20 6 - 20 mg/dL 06/16/2025 2:20 PM EDT [facility] Creatinine 1.1 0.7 - 1.2 mg/dL 06/16/2025 2:20 PM EDT [facility] Est, Aleta Filt Rate 83 >60 mL/min/1.7 3m2 06/16/2025 2:20 PM T [facility] Comment: These results are not intended for use in patients <18 years of age. eGFR results are calculated without a race factor using the 2020 CKD-EPI equation. Careful clinical correlation is recommended, particularly when comparing to results calculated using previous equations. The CKD-EPI equation is less accurate in patients with extremes of muscle mass, extra-renal metabolism of creatine, excessive creatine ingestion, or following therapy that affects renal tubular secretion. Calcium 10.4 8.6 - 10.4 mg/dL 06/16/2025 2:20 PM EDT [facility] Total Protein 8.5 6.6 - 8.7 g/dL 06/16/2025 2:20 PM T [facility] Albumin 5.0 3.5 - 5.2 g/dL 06/16/2025 2:20 PM T [facility] Albumin/Globulin Ratio 1.4 1.0 - 2.5 06/16/2025 2:20 PM EDT [facility] Total Bilirubin 0.9 0.0 - 1.2 mg/dL 06/16/2025 2:20 PM T [facility] Alkaline Phosphatase 95 40 - 129 U/L 06/16/2025 2:20 PM EDT [facility] ALT 48 10 - 50 U/L 06/16/2025 2:20 PM EDT [facility] AST 25 10 - 50 U/L 06/16/2025 2:20 PM T [facility] Blood BLOOD SPECIMEN / Unknown 06/16/2025 2:20 PM EDT 06/16/2025 2:25 PM EDT [facility] 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 ORDERABLES Raeann l Result [facility] [address] [place] [address], [facility] [phone] [facility] [address] [place] [address], [facility] [phone] * (ABNORMAL) CBC with Auto Differential (06/16/2025 2:20 PM EDT) WBC 12.1(H) 3.5 - 11.0 k/uL 06/16/2025 2:20 PM EDT [facility] RBC 6.44(H) 4.5 - 5.9 m/uL 06/16/2025 2:20 PM EDT [facility] Hemoglobin 18.9(H) 13.5 - 17.5 g/dL 06/16/2025 2:20 PM EDT [facility] Hematocrit 55.7(H) 41 - 53 % 06/16/2025 2:20 PM EDT [facility] MCV 86.4 80 - 100 fL 06/16/2025 2:20 PM EDT [facility] MCH 29.3 26 - 34 pg 06/16/2025 2:20 PM EDT [facility] MCHC 33.9 31 - 37 g/dL 06/16/2025 2:20 PM EDT [facility] RDW 14.6 12.5 - 15.4 % 06/16/2025 2:20 PM EDT [facility] Platelets 231 140 - 450 k/uL 06/16/2025 2:20 PM EDT [facility] MPV 8.3 6.0 - 12.0 fL 06/16/2025 2:20 PM EDT [facility] Neutrophils % 87(H) 36 - 66 % 06/16/2025 2:20 PM EDT [facility] Lymphocytes % 6(L) 24 - 44 % 06/16/2025 2:20 PM EDT [facility] Monocytes % 6 2 - 11 % 06/16/2025 2:20 PM EDT [facility] Eosinophils % 1 1 - 4 % 06/16/2025 2:20 PM EDT [facility] Basophils % 0 0 - 2 % 06/16/2025 2:20 PM EDT [facility] Neutrophils Absolute 10.60(H) 1.8 - 7.7 k/uL 06/16/2025 2:20 PM EDT [facility] Lymphocytes Absolute 0.70(L) 1.0 - 4.8 k/uL 06/16/2025 2:20 PM EDT [facility] Monocytes Absolute 0.70 0.1 - 1.2 k/uL 06/16/2025 2:20 PM EDT [facility] Eosinophils Absolute 0.10 0.0 - 0.4 k/uL 06/16/2025 2:20 PM EDT [facility] Basophils Absolute 0.00 0.0 - 0.2 k/uL 06/16/2025 2:20 PM EDT [facility] Blood BLOOD SPECIMEN / Unknown 06/16/2025 2:20 PM EDT 06/16/2025 2:25 PM EDT [facility] 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 ORDERABLES Fin al Result [place] [address] [place] [address], [facility] [phone] [facility] [address] [place] [id number] [phone] * EKG 12 Lead (Chest Pain) (06/16/2025 1:52 PM EDT) Ventricular Rate 88 BPM [facility] Atrial Rate 88 BPM [facility] P-R Interval 156 ms [facility] QRS Duration 98 ms [facility] Q-T Interval 354 ms [facility] QTc Calculation (Bazett) 428 ms [facility] P [place] 44 degrees [facility] R [place] -16 degrees [facility] T [place] 41 degrees [facility] 06/16/2025 1:52 PM EDT Narrative [facility] - 06/16/2025 4:00 PM EDT Normal sinus rhythm Normal ECG When compared with ECG of 15-Feb-2022 19:30, No significant change was found Procedure Note Regulo Almaraz MD - 06/16/2025 Normal sinus rhythm Normal ECG When compared with ECG of 15-Feb-2022 19:30, No significant change was found [facility] 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 ECG ORDERABLES Final Res ult [facility] documented in this encounter Visit Diagnoses Diagnosis Small bowel obstruction (HCC)- Primary Unspecified intestinal obstruction Small bowel obstruction (HCC) Unspecified intestinal obstruction HTN (hypertension), benign Essential hypertension, benign documented in this encounter Admitting Diagnoses Diagnosis Small bowel obstruction (HCC) Unspecified intestinal obstruction documented in this encounter Administered Medications Inactive Administered Medications - up to 3 most recent administrations Medication Order JAN Action Action Date Dose Rate Site 0.9 % sodium chloride infusion IntraVENous, at 5-250 mL/hr, PRN, if patient receiving piggyback infusions and maintenance fluids are not ordered, Starting on Mon06/16/25 at 1808, For piggyback infusion, administer at same rate as piggyback for a total of 25 mL. Enter 25 mL into dose field and piggyback rate into rate field of order. If piggyback is infusing at a rate less than 100 mL/hr, enter 25 mL into dose field and 100 mL/hr into rate field of order. 0.9 % sodium chloride infusion IntraVENous, at 75 mL/hr, CONTINUOUS, Starting on Mon06/16/25 at 1815, For 24 hours, Complete last bag that is running at 24 hours and then saline lock IV New Bag 06/16/2025 8:49 PM EDT 75 mL/hr New Bag 06/16/2025 6:47 PM EDT 75 mL/hr acetaminophen (TYLENOL) suppository 650 mg 650 mg, Rectal, EVERY 6 HOURS PRN, Starting on Mon06/16/25 at 1808, Until Mon06/18/25 at 1329, Pain Mild (1-3) OR per patient request for pain score (4-10), Fever, For temp greater than 100.4 F (38 C), Administer if oral route cannot be used. acetaminophen (TYLENOL) tablet 650 mg 650 mg, Oral, EVERY 6 HOURS PRN, Starting on Mon06/16/25 at 1808, Until Mon06/18/25 at 1329, Pain Mild (1-3) OR per patient request for pain score (4-10), Fever, For temp greater than 100.4 F (38 C), Maximum dose of acetaminophen is 4000 mg from all sources in 24 hours. Given 06/17/2025 9:58 PM EDT 650 mg cetirizine (ZYRTEC) tablet 5 mg 5 mg, Oral, DAILY, First dose on Mon06/16/25 at 2045, Until Discontinued, Substituted for Levocetirizine (XYZAL). Given 06/18/2025 9:14 AM EDT 5 mg Given 06/17/2025 12:01 PM EDT 5 mg diatrizoate meglumine-sodium (GASTROGRAFIN) 66-10 % solution 300 mL 300 mL, Per NG tube, IMG ONCE PRN, Starting on Mon06/17/25 at 0821, Until Mon06/18/25 at 1329, Other Given 06/17/2025 9:25 AM EDT 300 mLs enoxaparin Sodium (LOVENOX) injection 30 mg 30 mg, SubCUTAneous, 2 TIMES DAILY, First dose on Mon06/16/25 at 2100, Until Discontinued, Indication of Use: Prophylaxis-DVT/PE, Administer by deep subCUTAneous injection with pt lying down. Alternate injection sites on abdominal wall. Do not rub site after injection. Check with provider prior to any invasive procedure. Given 06/16/2025 10:46 PM EDT 30 mg Abdomen LLQ (Left Lower Quadrant) fentaNYL (SUBLIMAZE) injection 25 mcg 25 mcg, IntraVENous, ONCE, 1 dose, On Mon06/16/25 at 1645, If oral and IV narcotics ordered, use oral first and only use IV if oral is ineffective or cannot take oral. Do Not give oral and IV within 1 hour of each other unless specifically ordered. Given 06/16/2025 4:47 PM EDT 25 mcg fentaNYL (SUBLIMAZE) injection 50 mcg 50 mcg, IntraVENous, ONCE, 1 dose, On Mon06/16/25 at 1400, If oral and IV narcotics ordered, use oral first and only use IV if oral is ineffective or cannot take oral. Do Not give oral and IV within 1 hour of each other unless specifically ordered. Given 06/16/2025 2:56 PM EDT 50 mcg gabapentin (NEURONTIN) tablet 600 mg 600 mg, Oral, 2 TIMES DAILY, First dose on Mon06/16/25 at 2100, Until Discontinued Given 06/18/2025 9:13 AM EDT 600 mg Given 06/17/2025 9:58 PM EDT 600 mg iopamidol (ISOVUE-370) 76 % injection 100 mL 100 mL, IntraVENous, IMG ONCE PRN, 1 dose, Starting on Mon06/16/25 at 1525, Until Mon06/16/25 at 1527, Other Given 06/16/2025 3:27 PM EDT 100 mLs ketorolac (TORADOL) injection 30 mg 30 mg, IntraVENous, ONCE PRN, 1 dose, Starting on Mon06/17/25 at 0031, Until Mon06/17/25 at 0038, Pain Moderate (4-6) OR per patient request for pain score (7-10), Pain Severe (7-10), Do not administer for more than 5 days Given 06/17/2025 12:38 AM EDT 30 mg lactated ringers bolus 1,000 mL 1,000 mL, IntraVENous, at 983.6 mL/hr, Administer over 61 Minutes, ONCE, On Mon06/16/25 at 1400, For 1 dose New Bag 06/16/2025 2:55 PM EDT 1,000 mLs 983.6 mL/hr lisinopril (PRINIVIL;ZESTRIL) tablet 7.5 mg 7.5 mg, Oral, DAILY, First dose on Mon06/16/25 at 2045, Until Discontinued Given 06/18/2025 9:15 AM EDT 7.5 mg Given 06/17/2025 12:01 PM EDT 7.5 mg LORazepam (ATIVAN) injection 0.5 mg 0.5 mg, IntraVENous, ONCE, 1 dose, On Mon06/17/25 at 2230, Immediately prior to intravenous use, lorazepam Injection must be diluted with at least an equal volume of compatible solution (NS or D5W). Given 06/17/2025 10:32 PM EDT 0.5 mg LORazepam (ATIVAN) injection 1 mg 1 mg, IntraVENous, ONCE, 1 dose, On Mon06/16/25 at 1815, Immediately prior to intravenous use, lorazepam Injection must be diluted with at least an equal volume of compatible solution (NS or D5W). Given 06/16/2025 6:22 PM EDT 1 mg magnesium sulfate 2000 mg in 50 mL IVPB premix 2,000 mg, IntraVENous, at 25 mL/hr, Administer over 2 Hours, PRN, Other, Magnesium Replacement, Starting on Mon06/16/25 at 1808, Mag Lab Replacement Action 1.4-1.6 mg/dL 2,000 mg Total Dose Given as 1,000 mg IVPB x 2 doses or 2,000 mg IVPB x 1 dose 1.0-1.3 mg/dL 4,000 mg Total Dose Given as 1,000 mg IVPB x 4 doses or 2,000 mg IVPB x 2 doses Less than 1.0 mg/dL CALL PHYSICIAN and give 4,000 mg Total Dose Given as 1,000 mg IVPB x 4 doses or 2,000 mg IVPB x 2 doses Infuse at 1,000 mg/hr consecutively Repeat Mag level 1 hour after final administration Protocol not for use in Patients with CrCl less than 30ml/min morphine (PF) injection 2 mg 2 mg, IntraVENous, EVERY 4 HOURS PRN, Starting on Mon06/16/25 at 1808, Until Mon06/18/25 at 1329, Pain Moderate (4-6) OR per patient request for pain score (7-10), Pain Severe (7-10), If oral and IV narcotics ordered, use oral first and only use IV if oral is ineffective or cannot take oral. Do Not give oral and IV within 1 hour of each other unless specifically ordered. Given 06/17/2025 10:50 AM EDT 2 mg ondansetron (ZOFRAN) injection 4 mg 4 mg, IntraVENous, ONCE, 1 dose, On Mon06/16/25 at 1400 Given 06/16/2025 2:55 PM EDT 4 mg ondansetron (ZOFRAN) injection 4 mg 4 mg, IntraVENous, EVERY 6 HOURS PRN, Starting on Mon06/16/25 at 1808, Until Mon06/18/25 at 1329, Nausea, Vomiting, Administer if oral route cannot be used. ondansetron (ZOFRAN-ODT) disintegrating tablet 4 mg 4 mg, Oral, EVERY 8 HOURS PRN, Starting on Mon06/16/25 at 1808, Until Mon06/18/25 at 1329, Nausea, Vomiting pantoprazole (PROTONIX) tablet 40 mg 40 mg, Oral, DAILY BEFORE BREAKFAST, First dose on Mon06/17/25 at 0700, Until Discontinued, Do not crush or break. Substituted for Omeprazole (PRILOSEC). Given 06/18/2025 5:53 AM EDT 40 mg Given 06/17/2025 12:04 PM EDT 40 mg polyethylene glycol (GLYCOLAX) packet 17 g 17 g, Oral, DAILY PRN, Starting on Mon06/16/25 at 1808, Until Mon06/18/25 at 1329, Constipation, First line therapy for constipation potassium bicarb-citric acid (EFFER-K) effervescent tablet 40 mEq 40 mEq, Oral, PRN, Starting on Mon06/16/25 at 1808, Until Mon06/18/25 at 1329, Per Potassium Replacement Protocol, Administer as alternative if patient unable to tolerate oral tablet. K Lab Replacement Action 3.1 to 3.5 40 mEq ORAL x 1 Under 3.1 Refer to IV replacement protocol Recheck K level in AM. Protocol not for use in patients with CrCl lessthan 30 mL/min. Do not chew or crush. Dissolve flavored tablets completely in 3 to 4 ounces of cold water; unflavored tablets may be dissolved in 3 to 4 ounces of cold juice. Patient to sip slowly over a 5 to 10 minute period. May further dilute if GI adverse effects occur. potassium chloride (KLOR-CON M) extended release tablet 40 mEq 40 mEq, Oral, PRN, Starting on Mon06/16/25 at 1808, Until Mon06/18/25 at 1329, Potassium Replacement, May give alternative linked oral order (ordered as effervescent, packet, or liquid solution) if patient unable to tolerate tablet. K Lab Replacement Action 3.1 to 3.5 40 mEq ORAL x 1 Under 3.1 Refer to IV replacement protocol Recheck K level in AM. Protocol not for use in patients with CrCl less than 30 mL/min. Do not crush, chew, or suck on tablet. Tablet may also be broken in half and each half swallowed separately. potassium chloride 10 mEq/100 mL IVPB (Peripheral Line) 10 mEq, IntraVENous, PRN, Starting on Mon06/16/25 at 1808, Until Mon06/18/25 at 1329, at 100 mL/hr, Potassium Replacement, K Lab Replacement Action 2.7 to 3.0 10 mEq IVPB x 6 doses (60 mEq Total) Under 2.7 CALL PROVIDER and administer 10 mEq IVPB x 6 doses (60 mEq Total) Infuse at 10 mEq/hr consecutively. Repeat Potassium lab 1 hour after final administration., Protocol not for use in patients with CrCl less than 30 mL/min. rOPINIRole (REQUIP XL) extended release tablet 4 mg (Patient Supplied) 4 mg, Oral, NIGHTLY, First dose on Mon06/16/25 at 2100, Until Discontinued, Please use patient supplied medication Do not crush or break. Patient/Family Admin 06/17/2025 9:59 PM EDT 4 mg sertraline (ZOLOFT) tablet 50 mg 50 mg, Oral, DAILY, First dose on Mon06/16/25 at 2045, Until Discontinued Given 06/18/2025 9:15 AM EDT 50 mg Given 06/17/2025 12:03 PM EDT 50 mg sodium chloride flush 0.9 % injection 10 mL 10 mL, IntraVENous, ONCE, 1 dose, On Mon06/16/25 at 1530, For Line Patency: Peripheral IV = 5 mL; Midline or Central Line = 10 mL/lumen. If following IV push medication, administer flush at same rate as the IV push. Flush volume is determined by type of infusion therapy being given. For non-viscous solutions use: Peripheral IV = 5 mL Midline or Central Line = 10 mL/lumen For viscous solutions (i.e. blood components, parenteral nutrition, contrast media, or after obtaining blood sample) use: Peripheral IV = 10 mL Midline or Central Line = 20 mL/lumen Given 06/16/2025 3:27 PM EDT 10 mLs sodium chloride flush 0.9 % injection 5-40 mL 5-40 mL, IntraVENous, EVERY 12 HOURS SCHEDULED (2 times per day), First dose on Mon06/16/25 at 2100, Until Discontinued, For Line Patency: Peripheral IV = 5 mL; Midline or Central Line = 10 mL/lumen. If following IV push medication, administer flush at same rate as the IV push. Flush volume is determined by type of infusion therapy being given. For non-viscous solutions use: Peripheral IV = 5 mL Midline or Central Line = 10 mL/lumen For viscous solutions (i.e. blood components, parenteral nutrition, contrast media, or after obtaining blood sample) use: Peripheral IV = 10 mL Midline or Central Line = 20 mL/lumen Given 06/17/2025 9:59 PM EDT 10 mLs sodium chloride flush 0.9 % injection 5-40 mL 5-40 mL, IntraVENous, PRN, Starting on Mon06/16/25 at 1808, Until Mon06/18/25 at 1329, Line Care, After every IV line use, For Line Patency: Peripheral IV = 5 mL; Midline or Central Line = 10 mL/lumen. If following IV push medication, administer flush at same rate as the IV push. Flush volume is determined by type of infusion therapy being given. For non-viscous solutions use: Peripheral IV = 5 mL Midline or Central Line = 10 mL/lumen For viscous solutions (i.e. blood components, parenteral nutrition, contrast media, or after obtaining blood sample) use: Peripheral IV = 10 mL Midline or Central Line = 20 mL/lumen documented in this encounter Active and Recently Administered Medications Times are shown in EDT. Scheduled Medication Order 06/16/2025 06/17/2025 06/18/2025 cetirizine (ZYRTEC) tablet 5 mg 5 mg, Oral, DAILY, First dose on Mon06/16/25 at 2045, Until Discontinued, Substituted for Levocetirizine (XYZAL). 2056 (Not Given - Provider: Nelda Hood LPN - Reason: Other - Comment: day time med) 0726 (Held - Provider: Soni Hoyt LPN - Reason: Pt NPO)1201 (Given - Provider: Soni Hoyt LPN) 0914 (Given - Provider: Troy Lopes LPN) enoxaparin Sodium (LOVENOX) injection 30 mg 30 mg, SubCUTAneous, 2 TIMES DAILY, First dose on Mon06/16/25 at 2100, Until Discontinued, Indication of Use: Prophylaxis-DVT/PE, Administer by deep subCUTAneous injection with pt lying down. Alternate injection sites on abdominal wall. Do not rub site after injection. Check with provider prior to any invasive procedure. 2246 (Given - Provider: Nelda Hood LPN) 1036 (Not Given - Provider: Soni Hoyt LPN - Reason: Patient/family refused)215 (Not Given - Provider: Jordan Jhaveri LPN - Reason: Patient/family refused) 1114 (Not Given - Provider: Troy Lopes LPN - Reason: Patient/family refused) fentaNYL (SUBLIMAZE) injection 25 mcg (COMPLETED) 25 mcg, IntraVENous, ONCE, 1 dose, On Mon06/16/25 at 1645, If oral and IV narcotics ordered, use oral first and only use IV if oral is ineffective or cannot take oral. Do Not give oral and IV within 1 hour of each other unless specifically ordered. 1647 (Given - Provider: Oscar Lowry RN) fentaNYL (SUBLIMAZE) injection 50 mcg (COMPLETED) 50 mcg, IntraVENous, ONCE, 1 dose, On Mon06/16/25 at 1400, If oral and IV narcotics ordered, use oral first and only use IV if oral is ineffective or cannot take oral. Do Not give oral and IV within 1 hour of each other unless specifically ordered. 1456 (Given - Provider: Oscar Lowry RN) gabapentin (NEURONTIN) tablet 600 mg 600 mg, Oral, 2 TIMES DAILY, First dose on Mon06/16/25 at 2100, Until Discontinued 2254 (Not Given - Provider: Nelda Hood LPN - Reason: Pt NPO) 0726 (Held - Provider: Soni Hoyt LPN - Reason: Pt NPO)1204 (Not Given - Provider: Soni Hoyt LPN - Reason: Patient/family refused)2158 (Given - Provider: Jordan Jhaveri LPN) 0913 (Given - Provider: Troy Lopes LPN) lactated ringers bolus 1,000 mL (COMPLETED) 1,000 mL, IntraVENous, at 983.6 mL/hr, Administer over 61 Minutes, ONCE, On Mon06/16/25 at 1400, For 1 dose 1455 (New Bag - Provider: Oscar Lowry RN)1629 (Stopped - Provider: Oscar Lowry RN) lisinopril (PRINIVIL;ZESTRIL) tablet 7.5 mg 7.5 mg, Oral, DAILY, First dose on Mon06/16/25 at 2045, Until Discontinued 2056 (Not Given - Provider: Nelda Hood LPN - Reason: Other - Comment: day time med) 0726 (Held - Provider: Soni Hoyt LPN - Reason: Pt NPO)1201 (Given - Provider: Soni Hoyt LPN) 0915 (Given - Provider: Troy Lopes LPN) LORazepam (ATIVAN) injection 0.5 mg 0.5 mg, IntraVENous, ONCE, 1 dose, On Mon06/16/25 at 2015, Immediately prior to intravenous use, lorazepam Injection must be diluted with at least an equal volume of compatible solution (NS or D5W). 2014 (Due) LORazepam (ATIVAN) injection 0.5 mg (COMPLETED) 0.5 mg, IntraVENous, ONCE, 1 dose, On Mon06/17/25 at 2230, Immediately prior to intravenous use, lorazepam Injection must be diluted with at least an equal volume of compatible solution (NS or D5W). 2231 (Given - Provider: Kristie Vick RN) LORazepam (ATIVAN) injection 1 mg (COMPLETED) 1 mg, IntraVENous, ONCE, 1 dose, On Mon06/16/25 at 1815, Immediately prior to intravenous use, lorazepam Injection must be diluted with at least an equal volume of compatible solution (NS or D5W). 1821 (Given - Provider: Linnette Hubbard RN) ondansetron (ZOFRAN) injection 4 mg (COMPLETED) 4 mg, IntraVENous, ONCE, 1 dose, On Mon06/16/25 at 1400 1455 (Given - Provider: Oscar Lowry RN) pantoprazole (PROTONIX) tablet 40 mg 40 mg, Oral, DAILY BEFORE BREAKFAST, First dose on Mon06/17/25 at 0700, Until Discontinued, Do not crush or break. Substituted for Omeprazole (PRILOSEC). 0700 (Held - Provider: Nelda Hood LPN - Reason: Pt NPO)1204 (Given - Provider: Soni Hoyt LPN) 0553 (Given - Provider: Jordan Jhaveri LPN) rOPINIRole (REQUIP XL) extended release tablet 4 mg (Patient Supplied) 4 mg, Oral, NIGHTLY, First dose on Mon06/16/25 at 2100, Until Discontinued, Please use patient supplied medication Do not crush or break. 2253 (Not Given - Provider: Nelda Hood LPN - Reason: Pt NPO) 2158 (Patient/Family Admin - Provider: Jordan Jhaveri LPN) sertraline (ZOLOFT) tablet 50 mg 50 mg, Oral, DAILY, First dose on Mon06/16/25 at 2044, Until Discontinued 2057 (Not Given - Provider: Nelda Hood LPN - Reason: Other - Comment: day time med) 0726 (Held - Provider: Soni Hoyt LPN - Reason: Pt NPO)1203 (Given - Provider: Soni Hoyt LPN) 0915 (Given - Provider: Troy Lopes LPN) sodium chloride 0.9 % bolus 80 mL 80 mL (0.72 mL/kg), IntraVENous, at 154.8 mL/hr, Administer over 31 Minutes, ONCE, On Mon06/16/25 at 1530, For 1 dose 1527 (Bolus from Bag - Provider: Shira Edwards) sodium chloride flush 0.9 % injection 10 mL (COMPLETED) 10 mL, IntraVENous, ONCE, 1 dose, On Mon06/16/25 at 1530, For Line Patency: Peripheral IV = 5 mL; Midline or Central Line = 10 mL/lumen. If following IV push medication, administer flush at same rate as the IV push. Flush volume is determined by type of infusion therapy being given. For non-viscous solutions use: Peripheral IV = 5 mL Midline or Central Line = 10 mL/lumen For viscous solutions (i.e. blood components, parenteral nutrition, contrast media, or after obtaining blood sample) use: Peripheral IV = 10 mL Midline or Central Line = 20 mL/lumen 1527 (Given - Provider: Shira Edwards) sodium chloride flush 0.9 % injection 5-40 mL 5-40 mL, IntraVENous, EVERY 12 HOURS SCHEDULED (2 times per day), First dose on Mon06/16/25 at 2100, Until Discontinued, For Line Patency: Peripheral IV = 5 mL; Midline or Central Line = 10 mL/lumen. If following IV push medication, administer flush at same rate as the IV push. Flush volume is determined by type of infusion therapy being given. For non-viscous solutions use: Peripheral IV = 5 mL Midline or Central Line = 10 mL/lumen For viscous solutions (i.e. blood components, parenteral nutrition, contrast media, or after obtaining blood sample) use: Peripheral IV = 10 mL Midline or Central Line = 20 mL/lumen 2056 (Not Given - Provider: Nelda Hood LPN - Reason: IV Fluid Infusing) 725 (Held - Provider: Soni Hoyt LPN - Reason: IV Fluid Infusing)2158 (Given - Provider: Jordan Jhaveri LPN) 1113 (Not Given - Provider: Troy Lopes LPN - Reason: Patient/family refused) Continuous Medication Order 06/16/2025 06/17/2025 06/18/2025 0.9 % sodium chloride infusion () IntraVENous, at 75 mL/hr, CONTINUOUS, Starting on Mon06/16/25 at 1815, For 24 hours, Complete last bag that is running at 24 hours and then saline lock IV 184 (New Bag - Provider: Linnette Hubbard RN)2048 (New Bag - Provider: Nelda Hood LPN) PRN Medication Order 06/16/2025 06/17/2025 06/18/2025 0.9 % sodium chloride infusion IntraVENous, at 5-250 mL/hr, PRN, if patient receiving piggyback infusions and maintenance fluids are not ordered, Starting on Mon06/16/25 at 1808, For piggyback infusion, administer at same rate as piggyback for a total of 25 mL. Enter 25 mL into dose field and piggyback rate into rate field of order. If piggyback is infusing at a rate less than 100 mL/hr, enter 25 mL into dose field and 100 mL/hr into rate field of order. acetaminophen (TYLENOL) suppository 650 mg(Linked Group 1) 650 mg, Rectal, EVERY 6 HOURS PRN, Starting on Mon06/16/25 at 1808, Until Mon06/18/25 at 1329, Pain Mild (1-3) OR per patient request for pain score (4-10), Fever, For temp greater than 100.4 F (38 C), Administer if oral route cannot be used. 2157 (See Alternative - Provider: Jordan Jhaveri LPN) acetaminophen (TYLENOL) tablet 650 mg(Linked Group 1) 650 mg, Oral, EVERY 6 HOURS PRN, Starting on Mon06/16/25 at 1808, Until Mon06/18/25 at 1329, Pain Mild (1-3) OR per patient request for pain score (4-10), Fever, For temp greater than 100.4 F (38 C), Maximum dose of acetaminophen is 4000 mg from all sources in 24 hours. 2157 (Given - Provider: Jordan Jhaveri LPN) diatrizoate meglumine-sodium (GASTROGRAFIN) 66-10 % solution 300 mL 300 mL, Per NG tube, IMG ONCE PRN, Starting on Mon06/17/25 at 0821, Until Mon06/18/25 at 1329, Other 09 (Given - Provider: Chula Medina) fluticasone (FLONASE) 50 MCG/ACT nasal spray 2 spray 2 spray, Each Nostril, DAILY PRN, Starting on Mon06/16/25 at 2024, Until Mon06/18/25 at 1329, Rhinitis iopamidol (ISOVUE-370) 76 % injection 100 mL (COMPLETED) 100 mL, IntraVENous, IMG ONCE PRN, 1 dose, Starting on Mon06/16/25 at 1525, Until Mon06/16/25 at 1527, Other 1527 (Given - Provider: Shira Edwards) ketorolac (TORADOL) injection 30 mg (COMPLETED) 30 mg, IntraVENous, ONCE PRN, 1 dose, Starting on Mon06/17/25 at 0031, Until Mon06/17/25 at 0038, Pain Moderate (4-6) OR per patient request for pain score (7-10), Pain Severe (7-10), Do not administer for more than 5 days 37 (Given - Provider: Kristie Vick, YARELI) magnesium sulfate 2000 mg in 50 mL IVPB premix 2,000 mg, IntraVENous, at 25 mL/hr, Administer over 2 Hours, PRN, Other, Magnesium Replacement, Starting on Mon06/16/25 at 1808, Mag Lab Replacement Action 1.4-1.6 mg/dL 2,000 mg Total Dose Given as 1,000 mg IVPB x 2 doses or 2,000 mg IVPB x 1 dose 1.0-1.3 mg/dL 4,000 mg Total Dose Given as 1,000 mg IVPB x 4 doses or 2,000 mg IVPB x 2 doses Less than 1.0 mg/dL CALL PHYSICIAN and give 4,000 mg Total Dose Given as 1,000 mg IVPB x 4 doses or 2,000 mg IVPB x 2 doses Infuse at 1,000 mg/hr consecutively Repeat Mag level 1 hour after final administration Protocol not for use in Patients with CrCl less than 30ml/min morphine (PF) injection 2 mg 2 mg, IntraVENous, EVERY 4 HOURS PRN, Starting on Mon06/16/25 at 1808, Until Mon06/18/25 at 1329, Pain Moderate (4-6) OR per patient request for pain score (7-10), Pain Severe (7-10), If oral and IV narcotics ordered, use oral first and only use IV if oral is ineffective or cannot take oral. Do Not give oral and IV within 1 hour of each other unless specifically ordered. 1050 (Given - Provider: Natali Laureano RN) ondansetron (ZOFRAN) injection 4 mg(Linked Group 2) 4 mg, IntraVENous, EVERY 6 HOURS PRN, Starting on Mon06/16/25 at 1808, Until Mon06/18/25 at 1329, Nausea, Vomiting, Administer if oral route cannot be used. ondansetron (ZOFRAN-ODT) disintegrating tablet 4 mg(Linked Group 2) 4 mg, Oral, EVERY 8 HOURS PRN, Starting on Mon06/16/25 at 1808, Until Mon06/18/25 at 1329, Nausea, Vomiting polyethylene glycol (GLYCOLAX) packet 17 g 17 g, Oral, DAILY PRN, Starting on Mon06/16/25 at 1808, Until Mon06/18/25 at 1329, Constipation, First line therapy for constipation potassium bicarb-citric acid (EFFER-K) effervescent tablet 40 mEq(Linked Group 3) 40 mEq, Oral, PRN, Starting on Mon06/16/25 at 1808, Until Mon06/18/25 at 1329, Per Potassium Replacement Protocol, Administer as alternative if patient unable to tolerate oral tablet. K Lab Replacement Action 3.1 to 3.5 40 mEq ORAL x 1 Under 3.1 Refer to IV replacement protocol Recheck K level in AM. Protocol not for use in patients with CrCl lessthan 30 mL/min. Do not chew or crush. Dissolve flavored tablets completely in 3 to 4 ounces of cold water; unflavored tablets may be dissolved in 3 to 4 ounces of cold juice. Patient to sip slowly over a 5 to 10 minute period. May further dilute if GI adverse effects occur. potassium chloride (KLOR-CON M) extended release tablet 40 mEq(Linked Group 3) 40 mEq, Oral, PRN, Starting on Mon06/16/25 at 1808, Until Mon06/18/25 at 1329, Potassium Replacement, May give alternative linked oral order (ordered as effervescent, packet, or liquid solution) if patient unable to tolerate tablet. K Lab Replacement Action 3.1 to 3.5 40 mEq ORAL x 1 Under 3.1 Refer to IV replacement protocol Recheck K level in AM. Protocol not for use in patients with CrCl less than 30 mL/min. Do not crush, chew, or suck on tablet. Tablet may also be broken in half and each half swallowed separately. potassium chloride 10 mEq/100 mL IVPB (Peripheral Line)(Linked Group 3) 10 mEq, IntraVENous, PRN, Starting on Mon06/16/25 at 1808, Until Mon06/18/25 at 1329, at 100 mL/hr, Potassium Replacement, K Lab Replacement Action 2.7 to 3.0 10 mEq IVPB x 6 doses (60 mEq Total) Under 2.7 CALL PROVIDER and administer 10 mEq IVPB x 6 doses (60 mEq Total) Infuse at 10 mEq/hr consecutively. Repeat Potassium lab 1 hour after final administration., Protocol not for use in patients with CrCl less than 30 mL/min. sodium chloride flush 0.9 % injection 5-40 mL 5-40 mL, IntraVENous, PRN, Starting on Mon06/16/25 at 1808, Until Mon06/18/25 at 1329, Line Care, After every IV line use, For Line Patency: Peripheral IV = 5 mL; Midline or Central Line = 10 mL/lumen. If following IV push medication, administer flush at same rate as the IV push. Flush volume is determined by type of infusion therapy being given. For non-viscous solutions use: Peripheral IV = 5 mL Midline or Central Line = 10 mL/lumen For viscous solutions (i.e. blood components, parenteral nutrition, contrast media, or after obtaining blood sample) use: Peripheral IV = 10 mL Midline or Central Line = 20 mL/lumen Linked Groups Order Group 1: acetaminophen (TYLENOL) tablet 650 mgJump to med 650 mg, Oral, EVERY 6 HOURS PRN, Starting on Mon06/16/25 at 1808, Until Mon06/18/25 at 1329, Pain Mild (1-3) OR per patient request for pain score (4-10), Fever, For temp greater than 100.4 F (38 C), Maximum dose of acetaminophen is 4000 mg from all sources in 24 hours. Or acetaminophen (TYLENOL) suppository 650 mgJump to med 650 mg, Rectal, EVERY 6 HOURS PRN, Starting on Mon06/16/25 at 1808, Until Mon06/18/25 at 1329, Pain Mild (1-3) OR per patient request for pain score (4-10), Fever, For temp greater than 100.4 F (38 C), Administer if oral route cannot be used. Group 2: ondansetron (ZOFRAN-ODT) disintegrating tablet 4 mgJump to med 4 mg, Oral, EVERY 8 HOURS PRN, Starting on Mon06/16/25 at 1808, Until Mon06/18/25 at 1329, Nausea, Vomiting Or ondansetron (ZOFRAN) injection 4 mgJump to med 4 mg, IntraVENous, EVERY 6 HOURS PRN, Starting on Mon06/16/25 at 1808, Until Mon06/18/25 at 1329, Nausea, Vomiting, Administer if oral route cannot be used. Group 3: potassium chloride (KLOR-CON M) extended release tablet 40 mEqJump to med 40 mEq, Oral, PRN, Starting on Mon06/16/25 at 1808, Until Mon06/18/25 at 1329, Potassium Replacement, May give alternative linked oral order (ordered as effervescent, packet, or liquid solution) if patient unable to tolerate tablet. K Lab Replacement Action 3.1 to 3.5 40 mEq ORAL x 1 Under 3.1 Refer to IV replacement protocol Recheck K level in AM. Protocol not for use in patients with CrCl less than 30 mL/min. Do not crush, chew, or suck on tablet. Tablet may also be broken in half and each half swallowed separately. Or potassium bicarb-citric acid (EFFER-K) effervescent tablet 40 mEqJump to med 40 mEq, Oral, PRN, Starting on Mon06/16/25 at 1808, Until Mon06/18/25 at 1329, Per Potassium Replacement Protocol, Administer as alternative if patient unable to tolerate oral tablet. K Lab Replacement Action 3.1 to 3.5 40 mEq ORAL x 1 Under 3.1 Refer to IV replacement protocol Recheck K level in AM. Protocol not for use in patients with CrCl lessthan 30 mL/min. Do not chew or crush. Dissolve flavored tablets completely in 3 to 4 ounces of cold water; unflavored tablets may be dissolved in 3 to 4 ounces of cold juice. Patient to sip slowly over a 5 to 10 minute period. May further dilute if GI adverse effects occur. Or potassium chloride 10 mEq/100 mL IVPB (Peripheral Line)Jump to med 10 mEq, IntraVENous, PRN, Starting on Mon06/16/25 at 1808, Until Mon06/18/25 at 1329, at 100 mL/hr, Potassium Replacement, K Lab Replacement Action 2.7 to 3.0 10 mEq IVPB x 6 doses (60 mEq Total) Under 2.7 CALL PROVIDER and administer 10 mEq IVPB x 6 doses (60 mEq Total) Infuse at 10 mEq/hr consecutively. Repeat Potassium lab 1 hour after final administration., Protocol not for use in patients with CrCl less than 30 mL/min. documented in this encounter Care Teams Tire Service Technician Relationship Specialty Start Date End Date Derrick Ram MD [address] [place] [address] PCP - General Family Medicine 12/06/18 documented as of this encounter
--- OUTSIDE RECORDS SUMMARY | 2025-06-23 10:30 | XMS_ITS | Encounter Summary ---
Author Organization [facility] Address [address] [facility], [address] [place] [address] Care Team Providers Care Viticulturist Name Role Phone Derrick Ram MD Primary Care Provider + Reason for Visit * Reason Comments New Patient Hospital follow up S TOAN Encounter Details Date Type Department Care Team (Late st Contact Info) Description 06/23/2025 10:30 AM EDT Office Visit [facility], [facility] [address] [facility], [address], [place], [place] [id number] Сергей Gomez IV, DO [address] [facility] [address] [place] [address] Small bowel obstruction (HCC) (Primary Dx) Social History Tobacco Use Types Packs/Day Years Used Date Smoking Tobacco: Never Smokeless Tobacco: Never Tobacco Cessation:Counseling Given: Not Answered Alcohol Use Standard Drinks/Week Comments No 0 (1 standard drink = 0.6 oz pur e alcohol) [facility] Utilities Answer Date Recorded In the past 12 months has Joo[employer] e electric, gas, oil, or water company [...] place to sleep or slept in a fdc (including now)? No 04/09/2024 Housing Stability Vital Sign Answer Maicol e Recorded In the last 12 months, was t here a time when you were not able to pay the mortgage or rent on time? No 06/16/2025 In the past 12 months, how m any times have you moved where you were living? 0 06/16/2025 At any time in the past 12 m [facility], were you homeless or living in a fdc (including now)? No 06/16/2025 Food Insecurity Answer [...] Sign Reading Time Taken Comments Blood Pressure 110/64 06/23/2025 10:39 AM EDT Pulse 74 06/23/2025 10:39 AM EDT Temperature - - Respiratory Rate - - Oxygen Saturation 96% 06/23/2025 10:39 AM EDT Inhaled Oxygen Concentration - - Weight 107.5 kg (237 lb) 06/23/2025 10:39 AM EDT Height 202 cm (6' 7.53 ) 06/23/2025 10:39 AM EDT Body Mass Index 26.35 06/23/2025 10:39 AM EDT documented in this encounter Progress Notes * Сергей Gomez IV, DO - 06/23/2025 10:45 AM EDT Images from the original note were not included. Reason for visit: small bowel obstruction Subjective: 49 y/o male presents for follow up after hospital admission. Patient diagnosed with small bowel obstruction that was managed nonsurgically. Abdominal pain resolved but still has occasional bloating. Patient has irregular bowel movements. Denies nausea or vomiting. Denies fevers, chills,or sweats. Vitals: 06/23/25 1039 BP: 110/64 Pulse: 74 SpO2: 96% Exam General: patient is resting comfortably in on acute distress. AAOx3 Abdomen: soft, nontender, and nondistended. Assessment: Diagnosis Orders 1. Small bowel obstruction (HCC) Plan: Patient has resolving abdominal pain. Patient has no acute surgical issues. If patient has recurrent abdominal bloating, I offered referral to GI for further evaluation. Patient understood and agrees. Patient instructed to follow up as needed. documented in this encounter Plan of Treatment Upcoming Encounters Date Type Department Care Team (Late st Contact Info) Description 07/15/2025 3:20 PM EDT Office Visit [facility] [address] [place] [address] Viviana Granados, MARBLE AND GRANITE POLISHER - SHOE SALESMAN [address] [place] [address] 4 mo f/u 07/25/2025 10:30 AM EDT Office Visit [facility] [address] [facility] [address] [place] [address] [place] [address] [facility] [address] [place], [place] [phone] BLIND TEACHER. Abdominal bloating documented as of this encounter Visit Diagnoses Diagnosis Small bowel obstruction (HCC)- Primary Unspecified intestinal obstruction documented in this encounter Care Teams Viticulturist Relationship Specialty Start Date End Date Derrick Ram MD [address] [place] [address] PCP - General Family Medicine 12/06/18 documented as of this encounter
--- OUTSIDE RECORDS SUMMARY | 2025-07-02 19:49 | XMS_ITS | Encounter Summary ---
Author Organization [facility] Address [address] [facility], [address] [place] [address] Care Team Providers Care Agriscience Teacher Name Role Phone Derrick Ram MD Primary Care Provider + Reason for Visit * Reason Comments Medication Refill Encounter Details Date Type Department Care Team (Late st Contact Info) Description 06/20/2019 Refill Derrick Ram MD [address] [phone] Derrick Ram MD [address] [place] [phone] Medication Refill Social History Tobacco Use Types Packs/Day Years Used Date Smoking Tobacco: Never Smokeless Tobacco: Never Alcohol Use Standard Drinks/Week Comments No 0 (1 standard drink = 0.6 oz pur e alcohol) PHQ-2 Answer Date Recorded PHQ-2 Score 0 02/20/2019 Sex and Gender Information Value Date Recorded Sex Assigned at Not on file Legal Sex Male 6:35 PM EST Gender Identity Not on file Sexual Orientation Not on file documented as of this encounter Plan of Treatment Upcoming Encounters Date Type Department Care Team (Late Contact Info) Description 07/15/2025 3:20 PM EDT Office Visit [address] [address] Viviana Granados, WINDOW INSTALLATION SUBCONTRACTOR - ROLLER SKATE REPAIRER [address] [place] [address] 4 mo f/u 07/25/2025 10:30 AM EDT Office Visit [facility] Gastroenterology [address] [facility] [address] [place] [address] [place] [address] [facility] [address] [place], [place] [phone] MANAGER NICU. Abdominal bloating documented as of this encounter Visit Diagnoses Not on filedocumented in this encounter Care Teams Agriscience Teacher Relationship Specialty Start Date End Date Derrick Ram MD [address] [place] [address] PCP - General Family Medicine 12/06/18 documented as of this encounter
--- OUTSIDE RECORDS SUMMARY | 2025-07-02 19:49 | XMS_ITS | Encounter Summary ---
Author Organization [facility] Address [address] [facility], [address] [place] [address] Care Team Providers Care Analyst Market Intelligence Name Role Phone Derrick Ram MD Primary Care Provider + Reason for Visit * Reason Comments Medication Refill Encounter Details Date Type Department Care Team (Late st Contact Info) Description 08/12/2018 Refill [facility] [address] [place] [phone] Derrick Berrios MD Medication Refill Social History Tobacco Use Types Packs/Day Years Used Date Smoking Tobacco: Never Smokeless Tobacco: Never Alcohol Use Standard Drinks/Week Comments Not Asked 0 (1 standard drink = 0.6 oz pur e alcohol) Sex and Gender Information Value Date Recorded Sex Assigned at Not on file Legal Sex Male 6:35 PM EST Gender Identity Not on file Sexual Orientation Not on file documented as of this encounter Plan of Treatment Upcoming Encounters Date Type Department Care Team (Late st Contact Info) Description 07/15/2025 3:20 PM EDT Office Visit [facility] [address] [facility], [place] [address] Viviana Granados, ENRICHMENT TEACHER - CLINICAL MENTAL HEALTH COUNSELOR [address] [place] [address] 4 mo f/u 07/25/2025 10:30 AM EDT Office Visit [facility] Gastroenterology [address] [facility] [address] [place] [address] [place] [address] [facility] [address] [place] [address] SOCIAL MEDIA JOB TITLES. Abdominal bloating documented as of this encounter Visit Diagnoses Not on filedocumented in this encounter Care Teams Analyst Market Intelligence Relationship Specialty Start Date End Date Derrick Ram MD [address] [place] [address] PCP - General Family Medicine 12/06/18 documented as of this encounter
--- OUTSIDE RECORDS SUMMARY | 2025-07-02 19:49 | XMS_ITS | Encounter Summary ---
Author Organization [facility] Address [address] [facility], [address] [place] [address] Care Team Providers Care Mobile Marketing Manager Name Role Phone Derrick Ram MD Primary Care Provider + Reason for Visit * Reason Comments Medication Refill Encounter Details Date Type Department Care Team (Late st Contact Info) Description 01/04/[address] [address] Derrick Ram MD [address] [place] [phone] Medication Refill Social History Tobacco Use Types [...] Description 07/15/2025 3:20 PM EDT Office Visit [facility] [address] [place] [address] Viviana Granados, DOLPHIN RESEARCHER - OBSTETRICS GYN [address] [place] [address] 4 mo f/u 07/25/2025 10:30 AM EDT Office Visit [facility] Gastroenterology [address] [facility] [address] [place] [address] [place] [address] [facility] [address] [place], [place] [phone] FILLING STATION EQUIPMENT MECHANIC. Abdominal bloating documented as of this encounter Visit Diagnoses Not on filedocumented in this encounter Care Teams Mobile Marketing Manager Relationship Specialty Start Date End Date Derrick Ram MD [address] [place] [address] PCP - General Family Medicine 12/06/18 documented as of this encounter
--- OUTSIDE RECORDS SUMMARY | 2025-07-02 19:49 | XMS_ITS | Encounter Summary ---
Author Organization [facility] Address [address] [facility], [address] [place] [address] Care Team Providers Care Audio/Visual Manager Name Role Phone Derrick Ram MD Primary Care Provider + Reason for Visit * Reason Comments Medication Refill Encounter Details Date Type Department Care Team (Late st Contact Info) Description 04/20/2016 Refill [facility] [address] [place] [phone] Derrick Berrios MD Medication Refill Social History [...] Description 07/15/2025 3:20 PM EDT Office Visit [facility] [address] [facility] [place] [address] Viviana Granados, FIBER WORKER - DIRECTOR FACILITIES MAINTENANCE [address] [place] [address] 4 mo f/u 07/25/2025 10:30 AM EDT Office Visit [facility] Gastroenterology [address] [facility] [address] [place] [address] [place] [address] [facility] [address] [place] [address] BATCH TRUCKER. Abdominal bloating documented as of this encounter Visit Diagnoses Not on filedocumented in this encounter Care Teams Audio/Visual Manager Relationship Specialty Start Date End Date Derrick Ram MD [address] [place] [address] PCP - General Family Medicine 12/06/18 documented as of this encounter
--- OUTSIDE RECORDS SUMMARY | 2025-07-02 19:49 | XMS_ITS | Encounter Summary ---
Author Organization [facility] Address [address] [facility], [address] [place] [address] Care Team Providers Care Art History Professor Name Role Phone Derrick Ram MD Primary Care Provider + Reason for Visit * Reason Comments Medication Refill Encounter Details Date Type Department Care Team (Late st Contact Info) Description 01/08/2019 Refill [facility] [address] [place] [address] Shireen Edwards MD [facility] [place], [place] [phone] Medication Refill Social History Tobacco Use Types [...] Description 07/15/2025 3:20 PM EDT Office Visit [facility] [address] [place] [address] Viviana Granados, TEST CAR DRIVER - CT SCAN TECHNOLOGIST [address] [place] [address] 4 mo f/u 07/25/2025 10:30 AM EDT Office Visit [facility] Gastroenterology [address] [facility] [address] [place], [place] [phone] [place] [address] [facility] [address] [place] [address] IDEA MAN. Abdominal bloating documented as of this encounter Visit Diagnoses Not on filedocumented in this encounter Care Teams Art History Professor Relationship Specialty Start Date End Date Derrick Ram MD [address] [place] [address] PCP - General Family Medicine 12/06/18 documented as of this encounter
--- OUTSIDE RECORDS SUMMARY | 2025-07-02 19:49 | XMS_ITS | Encounter Summary ---
Author Organization [facility] Address [address] [facility], [address] [place] [address] Care Team Providers Care Courtesy Driver Name Role Phone Derrick Ram MD Primary Care Provider + Reason for Visit * Reason Comments Medication Refill Encounter Details Date Type Department Care Team (Late st Contact Info) Description 11/21/2018 Refill [facility] [address] [place] [phone] Derrick Berrios MD Medication Refill Social History [...] Description 07/15/2025 3:20 PM EDT Office Visit [facility] [address] [place] [address] Viviana Granados, SLOT ROUTER - BRANCH BANKER [address] [place] [address] 4 mo f/u 07/25/2025 10:30 AM EDT Office Visit [facility] Gastroenterology [address] [facility] [address] [place] [address] [place] [address] [facility] [address] [place] [address] SALES MARKETING COORDINATOR. Abdominal bloating documented as of this encounter Visit Diagnoses Not on filedocumented in this encounter Care Teams Courtesy Driver Relationship Specialty Start Date End Date Derrick Ram MD [address] [place] [address] PCP - General Family Medicine 12/06/18 documented as of this encounter
--- OUTSIDE RECORDS SUMMARY | 2025-07-02 19:49 | XMS_ITS | Encounter Summary ---
Author Organization [facility] Address [address], [address] [place] [address] Care Team Providers Care Bilingual Teacher Assistant Name Role Phone Derrick Ram MD Primary Care Provider + Reason for Visit * Reason Comments Medication Refill Encounter Details Date Type Department Care Team (Late st Contact Info) Description 09/22/2016 Refill [facility] [address] [place] [phone] Derrick Berrios MD Medication Refill Social History [...] Description 07/15/2025 3:20 PM EDT Office Visit [facility] [address] [facility] [place] [address] Viviana Granados, ALLIGATOR SHEAR OPERATOR - INSOLE REINFORCER [address] [place] [address] 4 mo f/u 07/25/2025 10:30 AM EDT Office Visit [facility]enterology [address] [place] [address] [place] [address] [place] [address] ORACLE AGILE PLM CONSULTANT. Abdominal bloating documented as of this encounter Visit Diagnoses Not on filedocumented in this encounter Care Teams Bilingual Teacher Assistant Relationship Specialty Start Date End Date Derrick Ram MD [address] [place] [address] PCP - General Family Medicine 12/06/18 documented as of this encounter
--- OUTSIDE RECORDS SUMMARY | 2025-07-02 19:49 | XMS_ITS | Encounter Summary ---
Author Organization [facility] Address [address] [place] [address] Care Team Providers Care Brazing Machine Setter Name Role Phone Derrick Ram MD Primary Care Provider + Reason for Visit * Reason Comments Medication Refill Encounter Details Date Type Department Care Team (Late st Contact Info) Description 08/07/2018 Refill [facility] [address] [place] [phone] Derrick Berrios MD Medication Refill Social History [...] Description 07/15/2025 3:20 PM EDT Office Visit [facility] [address] [facility] [place] [address] Viv[address] Granados, COURT USHER - FOOD DEHYDRATOR OPERATOR [address] [place] [address] 4 mo f/u 07/25/2025 10:30 AM EDT Office Visit [facility] G[facility]enterology [address] [place] [address] [place] [address] [place] [address] SLIP COVER CUTTER. Abdominal bloating documented as of this encounter Visit Diagnoses Not on filedocumented in this encounter Care Teams Brazing Machine Setter Relationship Specialty Start Date End Date Derrick Ram MD [address] [place] [address] PCP - General Family Medicine 12/06/18 documented as of this encounter
--- OUTSIDE RECORDS SUMMARY | 2025-07-02 19:49 | XMS_ITS | Encounter Summary ---
Author Organization [facility] Address [address] [place] [address] Care Team Providers Care Cable Wirer Name Role Phone Derrick Ram MD Primary Care Provider + Reason for Referral * Eval and Treat (Routine) - Open Specialty Diagnoses / Procedures Referred By Contarley t Referred To Contact Gastroenterology Diagnoses Abdominal bloating Сергей Gomez IV, DO [address] [facility] [address] [place] [address] Phone: tel: [place]: [place] [address] [place] [address] Phone: tel: fax: Referral ID Status Reason Start Date Expiration Date V isits Requested Visits Authorized [id number] Open Specialty Services Required 07/01/2025 07/01/2026 1 1 Scheduling Instructions [facility] Gastroenterology Question Answer Referral Reason GI Consult Comments The patient can be scheduled with any member of the group, including the provider with the first available appointments. Encounter Details Date Type Department Care Team (Late st Contact Info) Description 07/01/2025 Orders Only [facility] [address], [address], [place], [place] [id number] Сергей Gomez IV, DO [address] [facility] [address] [place], [place] [id number] Abdominal bloating (Primary Dx) Social History Tobacco Use Types Packs/Day Years Used Date Smoking Tobacco: Never Smokeless Tobacco: Never Alcohol Use Standard Drinks/Week Comments No 0 (1 standard drink = 0.6 oz pur e alcohol) [facility] Utilities Answer Date Recorded In the past [...] place to sleep or slept in a assisted (including now)? No 04/09/2024 Housing Stability Vital Sign Answer Maicol e Recorded In the last 12 months, was t here a time when you were not able to pay the mortgage or rent on time? No 06/16/2025 In the past 12 months, how m any times have you moved where you were living? 0 06/16/2025 At any time in the past 12 m [facility], were you homeless or living in a assisted (including now)? No 06/16/2025 Food Insecurity Answer [...] 07/15/2025 3:20 PM EDT Office Visit [facility] [address] [facility] 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 Abdominal bloating Scheduled Referrals Name Type Priority Associated Diagnoses Order Schedule Ammon Alexis MD, Gastroenterology, [facility] Referral Routine Abdominal bloating Ordered: 07/01/2025 documented as of this encounter Visit Diagnoses Diagnosis Abdominal bloating- Primary Flatulence, eructation, and gas pain documented in this encounter Care Teams Cable Wirer Relationship Specialty Start Date End Date Derrick Ram MD [address] [place] [id number] PCP - General Family Medicine 12/06/18 documented as of this encounter
--- OUTSIDE RECORDS SUMMARY | 2025-07-02 19:49 | XMS_ITS | Encounter Summary ---
Author Organization [facility] Address [address] [place] [address] Care Team Providers Care Early Morning Name Role Phone Derrick Ram MD Primary Care Provider + Reason for Visit * Reason Comments Medication Refill Encounter Details Date Type Department Care Team (Late st Contact Info) Description 07/09/2018 Refill [facility] [address] [place] [phone] Derrick Berrios MD Medication Refill Social History [...] Description 07/15/2025 3:20 PM EDT Office Visit [facility] [address] [facility] [address] [place] [address] Viviana Granados, TRAFFIC REPRESENTATIVE - WASHING MACHINE INSTALLER [address] [place] [address] 4 mo f/u 07/25/2025 10:30 AM EDT Office Visit [facility] Gastroenterology [address] [facility] [address] [place] [address] [place] [address] [address] [address] [place] [address] MAG[address]RATE. Abdominal bloating documented as of this encounter Visit Diagnoses Diagnosis RLS (restless legs syndrome) Restless legs syndrome (RLS) documented in this encounter Care Teams Early Morning Relationship Specialty Start Date End Date Derrick Ram MD [address] [place] [address] PCP - General Family Medicine 12/06/18 documented as of this encounter
--- OUTSIDE RECORDS SUMMARY | 2025-07-02 19:49 | XMS_ITS | Clinical Summary ---
Author Organization [facility] Address [address], [address] [place] [address] Care Team Providers Care Principal Developer Name Role Phone Derrick Ram MD Primary Care Provider + Allergies Active Allergy Reactions Criticality Noted Date Comments Codeine 09/29/2012 Medications fluticasone (FLONASE) 50 MCG/ACT nasal sprayIndication s:Seasonal allergic reaction 2 sprays by Each Nostril route daily 1 each 1 03/18/2025 Active lisinopril (PRINIVIL;ZESTR IL) 5 MG tabletIndicatio ns:HTN (hypertension), benign take 1 AND 1/2 tablets by mouth once daily 135 tablet 03/18/2025 Active omeprazole (PRILOSEC) 20 MG delayed release capsuleIndicati ons:Right upper quadrant abdominal pain,Flatulence , eructation and gas pain Take 1 capsule by mouth 2 times daily 180 capsule 1 03/18/2025 Active rOPINIRole (REQUIP XL) 4 MG extended release tabletIndicatio ns:RLS (restless legs syndrome) Take 1 tablet by mouth nightly 90 tablet 03/18/2025 Active sertraline (ZOLOFT) 50 MG tabletIndicatio ns:Dysthymia Take 1 tablet by mouth daily 90 tablet 03/18/2025 Active gabapentin (NEURONTIN) 600 MG tabletIndicatio ns:RLS (restless legs syndrome),Numbn ess and tingling of both legs TAKE 1 TABLET BY MOUTH 2 TIMES A DAY FOR 90 DAYS 180 tablet 04/15/2025 Active levocetirizine (XYZAL) 5 MG tabletIndicatio ns:Seasonal allergic reaction Take 1 tablet by mouth nightly 90 tablet 1 04/22/2025 Active Multiple Vitamin (MULTIVITAMIN) TABS tablet Take 1 tablet by mouth daily Active Active Problems Problem Noted Date Diagnosed Date Small bowel obstruction 06/16/2025 Enlarged tonsils and adenoids 04/09/2024 Seasonal allergic reaction 04/09/2024 HTN (hypertension), benign 01/19/2024 Overweight (BMI 25.0-29.9) 01/19/2024 Right upper quadrant pain 12/01/2023 Nausea 12/01/2023 Deviated septum 12/31/2014 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 RLS (restless legs syndrome) 05/27/2014 Low back pain 05/27/2014 Insomnia 02/05/2014 Encounters Date Type Department Care Team Description 07/01/2025 Orders Only [email or web address], [address], [facility] [address], [place] [address] Сергей Gomez IV, DO Abdominal bloating (Primary Dx) 06/23/2025 10:30 AM EDT Office Visit [email or web address], [address], [facility] [address], [place] [address] Сергей Gomez IV, DO Small bowel obstruction (HCC) (Primary Dx) 06/16/2025 1:29 PM EDT - 06/18/2025 11:29 AM EDT Hospital Encounter [facility] [address] [id number] Ana Garcia MD Jundi, Mohammed, MD Retholtz, Michael T, DO Small bowel obstruction (HCC) (Primary Dx) Discharge Disposition: Home or Self Care 06/16/2025 Travel 04/22/2025 Orders Only [address] [address] Viviana Granados, [employer] - NATUROPATHIC DOCTOR Muscle spasm (Primary Dx); Seasonal allergic reaction 04/22/2025 Telephone [facility] [address], [place] [address] Viviana Granados, [employer] - NATUROPATHIC DOCTOR Medication Refill 04/22/2025 Orders Only [facility] [address], [place] [address] Viviana Granados, [employer] - NATUROPATHIC DOCTOR Seasonal allergic reaction 04/13/2025 Refill [facility] [address], [place] [address] Viviana Granados, [employer] - NATUROPATHIC DOCTOR Medication Refill 04/08/2025 Orders Only [facility] [address], [place] [address] Derrick Ram MD Deviated septum (Primary Dx) 04/07/2025 Telephone [facility] [address], [place] [address] Derrick Ram MD Referral - General (ENT) from Last 3 Months Family History Relation Name Status Comments Brother Alive Father Alive Mother Alive Social History Tobacco Use Types Packs/Day Years Used Date Smoking Tobacco: Never Smokeless Tobacco: Never Tobacco Cessation:Counseling Given: Not Answered Alcohol Use Standard Drinks/Week Comments No 0 (1 standard drink = 0.6 oz pur e alcohol) [facility] Utilities Answer Date Recorded In the past 12 months has [employer], gas, oil, or water [employer] threatened to shut off services in your [...] place to sleep or slept in a correction (including now)? No 04/09/2024 Housing Stability Vital Sign Answer Maicol e Recorded In the last 12 months, was t here a time when you were not able to pay the mortgage or rent on time? No 06/16/2025 In the past 12 months, how m any times have you moved where you were living? 0 06/16/2025 At any time in the past 12 m [facility], were you homeless or living in a correction (including now)? No 06/16/2025 Food Insecurity Answer [...] on file Sexual Orientation Not on file Last Filed Vital Signs Vital Sign Reading Time Taken Comments Blood Pressure 110/64 06/23/2025 10:39 AM EDT Pulse 74 06/23/2025 10:39 AM EDT Temperature 36.6 C (97.9 F) 06/18/2025 8:49 AM EDT Respiratory Rate 16 06/18/2025 8:49 AM EDT Oxygen Saturation 96% 06/23/2025 10:39 AM EDT Inhaled Oxygen Concentration - - Weight 107.5 kg (237 lb) 06/23/2025 10:39 AM EDT Height 202 cm (6' 7.53 ) 06/23/2025 10:39 AM EDT Body Mass Index 26.35 06/23/2025 10:39 AM EDT Plan of Treatment Upcoming Encounters Date Type Department Care Team (Late st Contact Info) Description 07/15/2025 3:20 PM EDT Office Visit [facility] [address] [facility] 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 Abdominal bloating Health Maintenance Due Date Last Done Comments HIV screen 1991 DTaP/Tdap/Td vaccine (1 - Tdap) 1995 Hepatitis B vaccine (1 of 3 - 19+ 3-dose series) 1995 FIT/FOBT: Average risk 2021 Fecal-DNA (Cologuard): Average risk 2021 Sigmoidoscopy/CT colonography 2021 Colonoscopy 2023 Colorectal Cancer Screen 2023 COVID-19 Vaccine (2 - 2023-2 5 season) 2024 04/25/2021 Depression Monitoring 03/18/2026 03/18/2025 , 03/18/2025 Lipids 10/17/2028 10/17/2023, 10/03/2023, 01/23/2016 Flu vaccine (#1) 02/17/2032 Postponed f rom 06/20/2025 (Patient Refused) Depression Screen Discontinued 03/18/2025, 03/18/2025 Hepatitis A vaccine Aged Out No longe r eligible based on patient's age to complete this topic Hepatitis C screen Discontinued Hib vaccine Aged Out No longer eligi ble based on patient's age to complete this topic Meningococcal (ACWY) vaccine Aged Out No longer eligible based on patient's age to complete this topic Meningococcal B vaccine Aged Out No l onger eligible based on patient's age to complete this topic Pneumococcal 0-49 years Vaccine Aged Out No longer eligible b ased on patient's age to complete this topic Polio vaccine Aged Out No longer elig ible based on patient's age to complete this topic Procedures Procedure Name Priority Date/Time Associated Diagnosis Comments FL SMALL BOWEL FOLLOW THROUGH ONLY Routine 06/17/2025 9:24 AM EDT CBC WITH AUTO DIFFERENTIAL STAT 06/17/2025 6:53 AM EDT COMPREHENSIVE METABOLIC PANEL W/ REFLEX TO MG FOR LOW K STAT 06/17/2025 6:53 AM EDT CBC WITH AUTO DIFFERENTIAL Routine 06/16/2025 10:35 PM EDT XR ABDOMEN (KUB) (SINGLE AP VIEW) STAT 06/16/2025 7:[address] CHEST ABDOMEN PELVIS W CONTRAST STAT 06/16/2025 3:36 PM EDT TROPONIN STAT 06/16/2025 2:20 PM EDT MAGNESIUM STAT 06/16/2025 2:20 PM EDT LACTIC ACID STAT 06/16/2025 2:20 PM EDT COMPREHENSIVE METABOLIC PANEL STAT 06/16/2025 2:20 PM EDT CBC WITH AUTO DIFFERENTIAL STAT 06/16/2025 2:20 PM EDT EKG 12-LEAD STAT 06/16/2025 1:52 PM EDT LIPID PANEL Routine 10/17/2023 Elevated triglycerides with high cholesterol from Last 3 Months or Most Recently Relevant to Health Maintenance Results * FL SMALL BOWEL FOLLOW THROUGH [...] small-bowel obstruction, vomiting, and abdominal pain FINDINGS: Roll Slicing Machine Tender image of the abdomen demonstrates mild gas [...] with small-bowel obstruction, vomiting, and abdominalpain FINDINGS: Roll Slicing Machine Tender image of the abdomen demonstrates mild gas [...] FLUOROSCOPY ORDERABLES Fi nal Result * (ABNORMAL) Comprehensive Metabolic Panel w/ Reflex to MG (06/17/2025 6:53 AM EDT) Sodium 140 136 - 145 mmol/L 06/17/2025 6:53 AM [facility] Potassium 3.9 3.7 - 5.3 mmol/L 06/17/2025 6:53 AM [facility] Chloride 105 98 - 107 mmol/L 06/17/2025 6:53 AM [facility] CO2 25 20 - 31 mmol/L 06/17/2025 6:53 AM [facility] Anion Gap 10 9 - 16 mmol/L 06/17/2025 6:53 AM [facility] Glucose 100(H) 74 - 99 mg/dL 06/17/2025 6:53 AM [facility] BUN 20 6 - 20 mg/dL 06/17/2025 6:53 AM [facility] Creatinine 1.1 0.7 - 1.2 mg/dL 06/17/2025 6:53 AM [facility] Est, Glom Filt Rate 83 >60 mL/min/1.7 3m2 06/17/2025 6:53 AM [facility] Comment: These results are not intended [...] 8.6 - 10.4 mg/dL 06/17/2025 6:53 AM EDT [facility] Total Protein 6.7 6.6 - 8.7 g/dL 06/17/2025 6:53 AM EDT [facility] Albumin 4.0 3.5 - 5.2 g/dL 06/17/2025 6:53 AM EDT [facility] Albumin/Globulin Ratio 1.5 1.0 - 2.5 06/17/2025 6:53 AM EDT [facility] Total Bilirubin 0.7 0.0 - 1.2 mg/dL 06/17/2025 6:53 AM EDT [facility] Alkaline Phosphatase 69 40 - 129 U/L 06/17/2025 6:53 AM EDT [facility] ALT 31 10 - 50 U/L 06/17/2025 6:53 AM T [facility] AST 15 10 - 50 U/L 06/17/2025 6:53 AM T [facility] Blood BLOOD SPECIMEN / Unknown 06/17/2025 6:53 AM EDT 06/17/2025 6:54 AM EDT us Kelsi Cameron MD CHEMISTRY [place] [address], [facility] [phone] [facility] [address] [id number], [facility] [phone] * (ABNORMAL) CBC with Auto Differential (06/17/2025 6:53 AM EDT) Only the most recent of3 resultswithin the time period is included. WBC 7.0 3.5 - 11.0 k/uL 06/17/2025 6:53 AM EDT [facility] RBC 5.46 4.5 - 5.9 m/uL 06/17/2025 6:53 AM EDT [facility] Hemoglobin 16.0 13.5 - 17.5 g/dL 06/17/2025 6:53 AM [facility] Hematocrit 47.4 41 - 53 % 06/17/2025 6:53 AM [facility] MCV 86.8 80 - 100 fL 06/17/2025 6:53 AM [facility] MCH 29.3 26 - 34 pg 06/17/2025 6:53 AM [facility] MCHC 33.7 31 - 37 g/dL 06/17/2025 6:53 AM [facility] RDW 14.7 12.5 - 15.4 % 06/17/2025 6:53 AM [facility] Platelets 191 140 - 450 k/uL 06/17/2025 6:53 AM [facility] MPV 8.3 6.0 - 12.0 fL 06/17/2025 6:53 AM [facility] Neutrophils % 66 36 - 66 % 06/17/2025 6:53 AM [facility] Lymphocytes % 22(L) 24 - 44 % 06/17/2025 6:53 AM [facility] Monocytes % 8 2 - 11 % 06/17/2025 6:53 AM [facility] Eosinophils % 3 1 - 4 % 06/17/2025 6:53 AM [facility] Basophils % 1 0 - 2 % 06/17/2025 6:53 AM [facility] Neutrophils Absolute 4.60 1.8 - 7.7 k/uL 06/17/2025 6:53 AM [facility] Lymphocytes Absolute 1.50 1.0 - 4.8 k/uL 06/17/2025 6:53 AM [facility] Monocytes Absolute 0.60 0.1 - 1.2 k/uL 06/17/2025 6:53 AM [facility] Eosinophils Absolute 0.20 0.0 - 0.4 k/uL 06/17/2025 6:53 AM EDT [facility] Basophils Absolute 0.10 0.0 - 0.2 k/uL 06/17/2025 6:53 AM EDT [facility] Blood BLOOD SPECIMEN / Unknown 06/17/2025 6:53 AM EDT 06/17/2025 6:54 AM EDT us Kelsi Cameron MD HEMATOLOGY ORDERABLES Final Re sult [facility] [address] [place] [address], [facility] [phone] [facility] [address] [place] [address], [facility] [phone] * XR ABDOMEN (KUB) (SINGLE AP VIEW) [...] cardiopulmonary process. 3. Scattered left-sided colonic diverticula. [facility] - [facility] IMG [facility] ORDERABLES Final R esult * Troponin (06/16/2025 2:20 PM EDT) Troponin, High Sensitivity <6 0 - 22 ng/L 06/16/2025 2:20 PM EDT [facility] Comment:High Sensitivity Tro ponin values cannot be compared with other Troponin methodologies. Blood BLOOD SPECIMEN / Unknown 06/16/2025 2:20 PM EDT 06/16/2025 2:25 PM EDT [facility] [employer] - NATUROPATHIC DOCTOR CHEMISTRY ORDERABLES Raeann l Result [employer] [facility] [place] [address], [facility] [phone] [facility] [address] [place] [address], [place] [phone] * Magnesium (06/16/2025 2:20 PM EDT) Magnesium 2.0 1.6 - 2.6 mg/dL 06/16/2025 2:20 PM EDT [facility] Blood BLOOD SPECIMEN / Unknown 06/16/2025 2:20 PM EDT 06/16/2025 2:25 PM EDT [facility] [employer] - NATUROPATHIC DOCTOR CHEMISTRY ORDERABLES Raeann l Result [facility] [address] [place] [address], [facility] [phone] [facility] [address] [place] [address], [facility] [phone] * Lactic Acid (06/16/2025 2:20 PM EDT) Lactic Acid 1.6 0.5 - 2.2 mmol/L 06/16/2025 2:20 PM EDT [facility] Blood BLOOD SPECIMEN / Unknown 06/16/2025 2:20 PM EDT 06/16/2025 2:25 PM EDT [facility] [employer] - NATUROPATHIC DOCTOR CHEMISTRY ORDERABLES Raeann l Result [facility] [address] [place] [address], [facility] [phone] [facility] [address] [place] [address], [facility] [phone] * (ABNORMAL) CMP (06/16/2025 2:20 PM EDT) Sodium 136 136 - 145 mmol/L 06/16/2025 2:20 PM EDT [facility] Potassium 4.5 3.7 - 5.3 mmol/L 06/16/2025 2:20 PM [facility] Chloride 101 98 - 107 mmol/L 06/16/2025 2:20 PM [facility] CO2 22 20 - 31 mmol/L 06/16/2025 2:20 PM [facility] Anion Gap 13 9 - 16 mmol/L 06/16/2025 2:20 PM [facility] Glucose 108(H) 74 - 99 mg/dL 06/16/2025 2:20 PM [facility] BUN 20 6 - 20 mg/dL 06/16/2025 2:20 PM [facility] Creatinine 1.1 0.7 - 1.2 mg/dL 06/16/2025 2:20 PM [facility] Est, Glom Filt Rate 83 >60 mL/min/1.7 3m2 06/16/2025 2:20 PM [facility] Comment: These results are not intended [...] 8.6 - 10.4 mg/dL 06/16/2025 2:20 PM [facility] Total Protein 8.5 6.6 - 8.7 g/dL 06/16/2025 2:20 PM [facility] Albumin 5.0 3.5 - 5.2 g/dL 06/16/2025 2:20 PM [facility] Albumin/Globulin Ratio 1.4 1.0 - 2.5 06/16/2025 2:20 PM [facility] Total Bilirubin 0.9 0.0 - 1.2 mg/dL 06/16/2025 2:20 PM [facility] Alkaline Phosphatase 95 40 - 129 U/L 06/16/2025 2:20 PM EDT [facility] ALT 48 10 - 50 U/L 06/16/2025 2:20 PM EDT [facility] AST 25 10 - 50 U/L 06/16/2025 2:20 PM EDT [facility] Blood BLOOD SPECIMEN / Unknown 06/16/2025 2:20 PM EDT 06/16/2025 2:25 PM EDT [facility] CHEMISTRY ORDERABLES Raeann l Result [employer] [facility] [place] [address], [facility] [phone] [facility] [address] [place] [address], [facility] [phone] * EKG 12 Lead (Chest Pain) (06/16/2025 1:52 PM EDT) Ventricular Rate 88 BPM [facility] Atrial Rate 88 BPM [facility] P-R Interval 156 ms [facility] QRS Duration 98 ms [facility] Q-T Interval 354 ms [facility] QTc Calculation (Bazett) 428 ms [facility] P Ven[place] 44 degrees [facility] R Ven[place] -16 degrees [facility] T Ven[place] 41 degrees [facility] 06/16/2025 1:52 PM EDT Narrative [facility] - 06/16/2025 4:00 PM EDT Normal sinus rhythm Normal ECG When compared with ECG of 15-Feb-2022 19:30, No significant change was found Procedure Note Regulo Almaraz MD - 06/16/2025 Normal sinus rhythm Normal ECG When compared with ECG of 15-Feb-2022 19:30, No significant change was found [facility] [employer] - NATUROPATHIC DOCTOR ECG ORDERABLES Final Res ult [facility] * (ABNORMAL) Lipid Panel (10/17/2023) Cholesterol, Total 183 mg/dL HDL 35 35 - 70 mg/dL LDL Calculated 109 0 - 160 mg/dL Triglycerides 273(H) mg/dL Chol/HDL Ratio 5.2(H) VLDL Cholesterol non HDL 148(H) Blood BLOOD SPECIMEN / Unknown 10/17/2023 us Viviana Granados [employer] - NATUROPATHIC DOCTOR CHEMISTRY ORD ERABLES Final Result from Last 3 Months or Most Recently Relevant to Health Maintenance Insurance [employer] RET [employer] RET O [employer] RET O [employer]S RET O [employer] RET Chad [facility] O [employer] RET Advance Directives * Full Code (Latest Code Status on File) Date Activated Date Inactivated Comments 06/16/2025 6:09 PM 06/18/2025 1:34 PM Care Teams Principal Developer Relationship Specialty Start Date End Date Derrick Ram MD [address] [place] [address] PCP - General Family Medicine 12/06/18
== END 2025-07-02 19:45 | disposition home or self-care (01) ==
LOC: SLEEP 19:46
PROVIDERS: Visit Provider Otolaryngology
DX: G47.33 Obstructive sleep apnea (adult) (pediatric) (principal); G25.81 Restless legs syndrome; F51.01 Primary insomnia
CPT/HCPCS: 95811

== ENCOUNTER 2025-09-17 15:39 | Outpatient (OUT) | payer OTHER, SELFPAY ==
--- OUTSIDE RECORDS SUMMARY | 2025-09-17 15:41 | XMS_ITS | Clinical Summary ---
Author Organization [facility] Address [address], [address] [place] [address] Care Team Providers Care Resistor Tester Name Role Phone Derrick Ram MD Primary Care Provider + Allergies Active AllergyReactionsCriticalityNoted NneiAzbfdjvbNqgykav02/10/2012 Medications MedicationSigDispense QuantityRefillsLast FilledStart DateEnd DateStatus fluticasone (FLONASE) 50 MCG/ACT nasal spray Indications:Seasonal allergic reaction2 sprays by Each Nostril route daily 1 each 5Active lisinopril (PRINIVIL;ZESTRIL) 5 MG tablet Indications:HTN (hypertension), benigntake 1 AND 1/2 tablets by mouth once daily 135 tablet 5Active omeprazole (PRILOSEC) 20 MG delayed release capsule Indications:Right upper quadrant abdominal pain,Flatulence, eructation and gas painTake 1 capsule by mouth 2 times daily 180 capsule 5Active sertraline (ZOLOFT) 50 MG tablet Indications:DysthymiaTake 1 tablet by mouth daily 90 tablet 5Active gabapentin (NEURONTIN) 600 MG tablet Indications:RLS (restless legs syndrome),Numbness and tingling of both legsTAKE 1 TABLET BY MOUTH 2 TIMES A DAY FOR 90 DAYS 180 tablet 515Active levocetirizine (XYZAL) 5 MG tablet Indications:Seasonal allergic reactionTake 1 tablet by mouth nightly 90 tablet 5Active Multiple Vitamin (MULTIVITAMIN) TABS tablet Take 1 tablet by mouth dailyActive acetaminophen (TYLENOL) 650 MG extended release tablet Take 1 tablet by mouth every 8 hours as neededActive cetirizine (ZYRTEC) 10 MG tablet Take 1 tablet by mouthActive Sodium Sulfate-Mag Sulfate-KCl 4306-892-139 MG TABS sod sulf-pot chloride-mag sulf 1.479-0.188- 0.225 gram tablet Indications: Encounter for screening colonoscopy Please see instructional sheet given by physicians office. 24 tablet 10/22/2024 Weialu0010/22/2024ctive rOPINIRole (REQUIP XL) 4 MG extended release tablet Indications:RLS (restless legs syndrome)Take 1 tablet by mouth nightly 90 tablet /ctive rOPINIRole (REQUIP XL) 4 MG extended release tablet Indications:RLS (restless legs syndrome)Take 1 tablet by mouth nightly 90 tablet Discontinued(REORDER) Active Problems ProblemNoted DateDiagnosed DateSmall bowel vxuovwemezf00/28/2025Enlarged tonsils and roppofmt07/21/2024Seasonal allergic cmwcdiyi41/21/2024HTN (hypertension), fqaomv2801/19/2024Overweight (BMI 25.0-29.9)4Right upper quadrant pain 12/01/20231526Hqcpiv17/12/2024eviated wixspx9512/31/2014Lateral femoral cutaneous sbeanlnvqk58/21/2014RLS (restless legs syndrome)05/27/2014Low back pain 05/27/20142748Bhdcrvpu22/19/2014 Encounters DateTypeDepartmentCare HithWwsiddhamsk55/20/2025Orders Only [address] [address] Viviana Granados, VOCATIONAL TECHNICAL EDUCATION TEACHER - HIDE AND SKIN FLESHING MACHINE OPERATOR RLS (restless legs syndrome)07/30/2025Results Follow-Up [address] [address] Milady Hicks MA 07/25/2025 10:30 AM EDTOffice Visit [facility] [address] [address] [place] [address] Sho Zavala MD Nausea and vomiting, unspecified vomiting type (Primary Dx); RUQ abdominal pain; Gastroesophageal reflux disease without iafcsxfiuly29/02/2025bstract [address] [address] Viviana Granados, VOCATIONAL TECHNICAL EDUCATION TEACHER - HIDE AND SKIN FLESHING MACHINE OPERATOR 07/22/2025Orders Only [address] [address] Milady Hicks MA Encounter for well adult exam without abnormal findings; RLS (restless legs syndrome); HTN (hypertension), benign; Overweight (BMI 25.0-29.9); Insomnia, unspecified type; Vitamin D deficiency; Lipid screening; Chronic fatigue; Screening, lipid; Screening for diabetes mellitus (DM); Screening for thyroid jouavuuo22/28/2025 1:40 PM EDTOffice Visit [address] [address] Vivaina Granados, VOCATIONAL TECHNICAL EDUCATION TEACHER - HIDE AND SKIN FLESHING MACHINE OPERATOR Encounter for well adult exam without abnormal findings (Primary Dx); RLS (restless legs syndrome); HTN (hypertension), benign; Overweight (BMI 25.0-29.9); Insomnia, unspecified type; Vitamin D deficiency; Lipid screening; Chronic fatigue; Screening, lipid; Screening for diabetes mellitus (DM); Screening for thyroid bijiojse15/12/2025Orders Only [employer] [address], [address], [place] [address] Сергей Gomez IV, DO Abdominal bloating (Primary Dx)06/23/2025 10:30 AM EDTOffice Visit [employer] [address], [address], [place] [address] Сергей Gomez IV, DO Small bowel obstruction (HCC) (Primary Dx)06/16/2025 1:29 PM EDT - 06/18/2025 11:29 AM EDTHospital Encounter [facility] [address] [id number] Ana Garcia MD Jundi, Mohammed, MD Retholtz, Michael T, DO Small bowel obstruction (HCC) (Primary Dx) Discharge Disposition: Home or Self Carefrom Last 3 Months Family History RelationNameStatusCommentsBrotherAliveFatherAliveMotherAlive Social History Tobacco UseTypesPacks/DayYears UsedDateSmoking Tobacco: NeverSmokeless Tobacco: Never Tobacco Cessation:Counseling Given: Not Answered Alcohol UseStandard Drinks/WeekCommentsNot Currently0 (1 standard drink = 0.6 oz pure alcohol)[facility] UtilitiesAnswerDate RecordedIn the past 12 months has the electric, gas, oil, or water [employer] threatened to shut off services in your home?No06/16/2025Overall Financial Resource Strain (CARDIA)AnswerDate Recorded How hard is it for you to pay for the very basics like food, housing, medical care, and heating?Not hard at all04/09/2024HQ-2AnswerDate RecordedPHQ-9 Total Abntg445Hunger Vital SignAnswerDate RecordedWithin the past 12 months, you worried that your food would run out before you got the money to buymore. Never true06/16/2025Within the past 12 months, the food you bought just didn't last and you didn't have money to get more.Never true06/16/2025PRAPARE - TransportationAnswerDate RecordedIn the past 12 months, has lack of transportation kept you from medical appointments or from getting medications?No 06/16/2025In the past 12 months, has lack of transportation kept you from meetings, work, or from getting things needed for daily living?No06/16/2025 Housing Stability Vital SignAnswerDate RecordedUnable to Pay for Housing in the Last YearNot on file04/09/2024Number of Places Lived in the Last YearNot on file 04/09/2024In the last 12 months, was there a time when you did not have a steady place to sleep or slept in [place] (including now)?No04/09/2024Housing Stability Vital SignAnswerDate RecordedIn the last 12 months, was there a time when you were not able to pay the mortgage or rent on time?06/16/2025In the past 12 months, how many times have you moved where you were living? At any time in the past 12 months, were you homeless or living in a senior care (including now)?06/16/2025Food InsecurityAnswerDate RecordedWithin the past 12 months, you worried that your food would run out before you got the money to buy more.Within the past 12 months, the food you bought just didn't last and you didn't have money to get more.Interpersonal Safety Domain Source: IP Abuse ScreeningAnswerDate RecordedPhysical jnxeeTvaxgp05/29/2025 Verbal degvcVizgkx88/29/2025Emotional gdfrcEmpyqo36/29/2025Financial abuseDenies 06/17/2025Sexual bkkhtKhcjza64/29/2025Sex and Gender InformationValueDate RecordedSex Assigned at NfpzpTziv78/05/2025 9:17 AM EDTLegal GnbVrka8012/30/2012 6:35 PM ESTGender PqswumobRdks68/05/2025 9:17 AM EDTSexual OrientationStraight 07/25/2025 9:17 AM EDT Last Filed Vital Signs Vital SignReadingTime TakenCommentsBlood Euwxexeq506/8009 10:28 AM EDT Qoncy877907/25/2025 10:28 AM XCJDwuywnjetbc99.6 ??C (97.8 ??F)07/17/2025 1:40 PM EDTRespiratory Fqyb381707/17/2025 1:40 PM EDTOxygen Amycyrzxge27%07/25/2025 10:28 AM EDTInhaled Oxygen Concentration--Ycgpoy781.9 kg (240 lb)07/25/2025 10:28 AM JLMSjzliw654.9 cm (6' 7.5 )07/25/2025 10:28 AM EDTBody Mass Index26.709 10:28 AM EDT Plan of Treatment Health MaintenanceDue DateLast DoneCommentsHIV nhmfso6810/07/1991DTaP/Tdap/Td vaccine (1 - Tdap)1995Hepatitis B vaccine (1 of 3 - 19+ 3-dose series) 1995FIT/FOBT: Average risk2021Fecal-DNA (Cologuard): Average risk 2021igmoidoscopy/CT oqrdzhrbqngo72/18/6101Yhqellntctf60/18/2023olorectal Cancer Dyeoun2010/07/2023OVID-19 Vaccine ( season)/04/2021 Depression Hizzujhgvr60/29/72051303/18/2025, 03/18/2025Diabetes yndvol5907/17/2028 07/17/20252746Lfiwru54, 10/17/2023, 10/03/2023, Additional history existsFlu vaccine (#1)2Postponed from 06/20/2025 (Patient Refused) Depression XtzqieGhmsonpejoah38/29/2025, 03/18/2025Hepatitis A vaccineAged OutNo longer eligible based on patient's age to complete this topicHepatitis C screen DiscontinuedHib vaccineAged OutNo longer eligible based on patient's age to complete this topicMeningococcal (ACWY) vaccineAged OutNo longer eligible based on patient's age to complete this topicMeningococcal B vaccineAged OutNo longer eligible based on patient's age to complete this topicPneumococcal 0-49 years VaccineAged OutNo longer eligible based on patient's age to complete this topic Polio vaccineAged OutNo longer eligible based on patient's age to complete this topic Procedures Procedure NamePriorityDate/TimeAssociated JaeiujjxgGflgumtvWCQIjprnuy97/28/2025 COMPREHENSIVE METABOLIC XEBWFQywfnaq73/28/2025 LIPID PGXPOJfnzrmg64/28/2025 Encounter for well adult exam without abnormal findings RLS (restless legs syndrome) HTN (hypertension), benign Overweight (BMI 25.0-29.9) Insomnia, unspecified type Vitamin D deficiency Lipid screening Chronic fatigue Screening, lipid Screening for diabetes mellitus (DM) Screening for thyroid disorder TSH REFLEX TO OT4Uwzctsz57/28/2025 Encounter for well adult exam without abnormal findings RLS (restless legs syndrome) HTN (hypertension), benign Overweight (BMI 25.0-29.9) Insomnia, unspecified type Vitamin D deficiency Lipid screening Chronic fatigue Screening, lipid Screening for diabetes mellitus (DM) Screening for thyroid disorder HEMOGLOBIN G0ZMytmcjj30/28/2025 Encounter for well adult exam without abnormal findings RLS (restless legs syndrome) HTN (hypertension), benign Overweight (BMI 25.0-29.9) Insomnia, unspecified type Vitamin D deficiency Lipid screening Chronic fatigue Screening, lipid Screening for diabetes mellitus (DM) Screening for thyroid disorder VITAMIN D 25 VAGMGSBMbirifp28/28/2025 Encounter for well adult exam without abnormal findings RLS (restless legs syndrome) HTN (hypertension), benign Overweight (BMI 25.0-29.9) Insomnia, unspecified type Vitamin D deficiency Lipid screening Chronic fatigue Screening, lipid Screening for diabetes mellitus (DM) Screening for thyroid disorder VITAMIN B12 & IOXEIDZvlsqzm62/28/2025 Encounter for well adult exam without abnormal findings RLS (restless legs syndrome) HTN (hypertension), benign Overweight (BMI 25.0-29.9) Insomnia, unspecified type Vitamin D deficiency Lipid screening Chronic fatigue Screening, lipid Screening for diabetes mellitus (DM) Screening for thyroid disorder [place] SMALL BOWEL FOLLOW THROUGH QRLUGmktezt98/29/2025 9:24 AM EDT CBC WITH AUTO AALXZPHYVTHZYDYT39/29/2025 6:53 AM EDT COMPREHENSIVE METABOLIC PANEL W/ REFLEX TO MG FOR LOW KSTAT06/17/2025 6:53 AM EDT from Last 3 Months Results * Vitamin B12 & Folate (07/17/2025)ComponentValueRef RangeTest MethodAnalysis TimePerformed AtPathologist SignatureVitamin B-79174Aftpwx40.4Specimen (Source)Anatomical Location / LateralityCollection Method / VolumeCollection TimeReceived TimeBloodBLOOD SPECIMEN / Yxemtdx9607/17/2025 Narrative Authorizing ProviderResult TypeResult StatusViviana Granados [facility] CHEMISTRY ORDERABLESFinal Result * TSH reflex to FT4 (07/17/2025)ComponentValueRef RangeTest MethodAnalysis Time Performed AtPathologist SignatureTSH0.91uIU/mLSpecimen (Source)Anatomical Location / LateralityCollection Method / VolumeCollection TimeReceived Time BloodBLOOD SPECIMEN / Jlknmsq5507/17/2025 Narrative Authorizing ProviderResult TypeResult StatusViviana Granados [facility] CHEMISTRY ORDERABLESFinal Result * Vitamin D 25 Hydroxy (07/17/2025)ComponentValueRef RangeTest MethodAnalysis TimePerformed AtPathologist SignatureVit D, 25-Sctnyqn78Jivzihm D3,25 Hydroxy Vitamin D2, 25 HydroxySpecimen (Source)Anatomical Location / Laterality Collection Method / VolumeCollection TimeReceived TimeBloodBLOOD SPECIMEN / Isjzyrl6007/17/2025 Narrative Authorizing ProviderResult TypeResult StatusViviana Granados [facility] CHEMISTRY ORDERABLESFinal Result * CBC (07/17/2025)ComponentValueRef RangeTest MethodAnalysis TimePerformed At Pathologist SignatureWBC8.810^3/yGUwxzikeruv52.113.5 - 17.5 g/qJQeciobmqae42.3 41 - 53 %Hxcdavrkp245C/??LNeutrophils %74%Lymphocytes %17.0%Monocytes %5.7% Eosinophils %2.7%Basophils %0.6%Neutrophils Absolute6,512/??LLymphocytes Absolute1,496/??LMonocytes Anbuykdl075/??LEosinophils Wjpbkkha567/??LBasophils Nlhawcjd24/??LRBC5.5010^6/??LMCV89.7zGDPM97.9kyIDRF78.7g/dLMPV10.1fLSpecimen (Source)Anatomical Location / LateralityCollection Method / VolumeCollection TimeReceived TimeBloodBLOOD SPECIMEN / Uldrqpe0807/17/2025 Narrative Authorizing ProviderResult TypeResult StatusHistorical Provider MDHEMATOLOGY ORDERABLESFinal Result * Hemoglobin A1C (07/17/2025)ComponentValueRef RangeTest MethodAnalysis Time Performed AtPathologist SignatureHemoglobin A1C5.5%Estimated Avg Glucose Specimen (Source)Anatomical Location / LateralityCollection Method / Volume Collection TimeReceived TimeBloodBLOOD SPECIMEN / Jpzctke1807/17/2025 Narrative Authorizing ProviderResult TypeResult StatusViviana Granados [facility] CHEMISTRY ORDERABLESFinal Result * (ABNORMAL) Lipid Panel (07/17/2025)ComponentValueRef RangeTest MethodAnalysis TimePerformed AtPathologist SignatureCholesterol, Bjwnd879jb/dLHDL33(L)35 - 70 mg/dLLDL Nevzkkiubnb03Shyumzwbcaquk792(H)mg/dLChol/HDL Ratio5.0(H)VLDL Cholesterol non COG602(H)Specimen (Source)Anatomical Location / Laterality Collection Method / VolumeCollection TimeReceived TimeBloodBLOOD SPECIMEN / Vsiezwa5307/17/2025 Narrative Authorizing ProviderResult TypeResult StatusViviana Granados [facility] CHEMISTRY ORDERABLESFinal Result * (ABNORMAL) Comprehensive Metabolic Panel (07/17/2025)ComponentValueRef Range Test MethodAnalysis TimePerformed AtPathologist ZtnxyzfnxTngtoe921zylu/L Ngvmpmch223dzwz/LPotassium4.0mmol/CPZY51qm/dLCreatinine1.04mg/pZBvhxqhz169(H) mg/wUEEC20L/WYTG10W/LCalcium9.5mg/dLTotal Protein7.26.4 - 8.2 g/zSHL918jocw/L Albumin4.5g/dLAlkaline Ddrlmzuyjoe75S/LTotal Bilirubin0.50.1 - 1.4 mg/dLEst, Glom Filt Bdjl60Utkmx GapSpecimen (Source)Anatomical Location / Laterality Collection Method / VolumeCollection TimeReceived TimeBloodBLOOD SPECIMEN / Obpeuhn0607/17/2025 Narrative Authorizing ProviderResult TypeResult StatusHistorical Provider MDCHEMISTRY ORDERABLESFinal Result * FL SMALL BOWEL FOLLOW THROUGH ONLY (06/17/2025 9:24 AM EDT)Anatomical Region LateralityModalityAbdomenComputed RadiographySpecimen (Source)Anatomical Location / LateralityCollection Method / VolumeCollection TimeReceived Time 06/17/2025 9:27 AM EDT Impressions 06/17/2025 9:31 AM EDT 1. Findings above which can be seen with partial small bowel obstruction or small-bowel ileus. ??Normal transit time to the terminal ileum. 2. [...] small-bowel obstruction, vomiting, and abdominal pain FINDINGS: Energy Assistant image of the abdomen demonstrates mild gas and stool scattered throughout the visualized colonic segments. ??No abnormally dilated small bowel loops. ??Psoas shadows symmetric in appearance. ??NG tube traverses the GE junction with distal tip overlying the left upper quadrant likely within the body/fundus of the stomach. ??Bibasilar atelectasis, right greater than left. At 0 minutes, contrast is seen opacifying the stomach, duodenal C-loop and proximal small bowel/jejunal loops. At 15 minutes, contrast is seen opacifying the majority of the small bowel. Dilated small bowel loops with prominence of the valvuli conniventes are seen within the lower abdomen/upper pelvis. ??These measure up to 3.9 cm in caliber. At 30 minutes, there is further migration of contrast into small bowel loops. At 45 minutes, contrast is seen opacifying the stomach, entirety of the small bowel, and entirety of the colon to the level of the rectum. ??Small amount of contrast is seen distending the urinary bladder. There is normal transit time to the terminal ileum. ??No focal abnormality or stricture of the small [...] with small-bowel obstruction, vomiting, and abdominalpain FINDINGS: Energy Assistant image of the abdomen demonstrates mild gas [...] quadrant likelywithin the body/fundus of the stomach. Authorizing ProviderResult TypeResult StatusAnddevika Reed DOIMG FLUOROSCOPY ORDERABLESFinal Result * (ABNORMAL) Comprehensive Metabolic Panel w/ Reflex to MG (06/17/2025 6:53 AM EDT)ComponentValueRef RangeTest MethodAnalysis TimePerformed AtPathologist CjgjrhotvLvordu535594 - 145 mmol/L06/17/2025 6:[address] [facility] LABPotassium3.93.7 - 5.3 mmol/L06/17/2025 6:[address] [facility] JAGUiqbgnmp20182 - 107 mmol/L06/17/2025 6:53 AM EDT [facility] HFKOT84639 - 31 mmol/L06/17/2025 6:53 AM EDT [facility] LABAnion Cxt617 - 16 mmol/L06/17/2025 6:[address] [facility] KFBZctrdaw069(H)74 - 99 mg/dL06/17/2025 6:[address] [facility] YWBWLI178 - 20 mg/dL06/17/2025 6:[address] [facility] LABCreatinine1.10.7 - 1.2 mg/dL 06/17/2025 6:[address] [facility] LABEst, Glom Filt Rate 83>60 mL/min/1.37u72506/17/2025 6:[address] [facility] Comment: ? These results are not intended for use in patients <18 years of age. ? eGFR results are calculated without a race factor using the 2020 CKD-EPI equation. Careful clinical correlation is recommended, particularly when comparing to results calculated using previous equations. The CKD-EPI equation is less accurate in patients with extremes of muscle mass, extra-renal metabolism of creatine, excessive creatine ingestion, or following therapy that affects renal tubular secretion. Calcium8.98.6 - 10.4 mg/dL06/17/2025 6:[address] [facility] LABTotal Protein6.76.6 - 8.7 g/dL06/17/2025 6:[address] [facility] LABAlbumin4.03.5 - 5.2 g/dL06/17/2025 6:[address] [facility] LABAlbumin/Globulin Ratio1.51.0 - 2.5006/17/2025 6:53 AM EDT [facility] LABTotal Bilirubin0.70.0 - 1.2 mg/dL06/17/2025 6:[address] [facility] LABAlkaline Gdmcctnfkrn4850 - 129 U/L06/17/2025 6:[address] [facility] MCVEEZ5608 - 50 U/L 06/17/2025 6:[address] [facility] QNKMCY8731 - 50 U/L 06/17/2025 6:[address] [facility] LABSpecimen (Source) Anatomical Location / LateralityCollection Method / VolumeCollection Time Received TimeBloodBLOOD SPECIMEN / Zxvlzkq2106/17/2025 6:53 AM EDT06/17/2025 6:54 AM EDT Narrative Authorizing ProviderResult TypeResult StatusMohammed Jundi MDCHEMISTRY ORDERABLESFinal ResultPerforming OrganizationAddressCity/State/ZIP CodePhone [place] [address], [facility] [phone] [facility] [address] [id number], [facility] [phone] * (ABNORMAL) CBC with Auto Differential (06/17/2025 6:53 AM EDT)ComponentValue Ref RangeTest MethodAnalysis TimePerformed AtPathologist SignatureWBC7.03.5 - 11.0 k/uL06/17/2025 6:[address] [facility] LABRBC5.464.5 - 5.9 m/uL06/17/2025 6:[address] [facility] LABHemoglobin 16.013.5 - 17.5 g/dL06/17/2025 6:[address] [facility] Fwgtrfgczw66.441 - 53 %06/17/2025 6:[address] [facility] PVMGUA51.880 - 100 fL06/17/2025 6:[address] [facility] QHPWPW20.326 - 34 pg06/17/2025 6:[address] [facility] MCHC33.731 - 37 g/dL06/17/2025 6:[address] [facility] RDW14.712.5 - 15.4 %06/17/2025 6:[address] [facility] Jpfrsogjq813038 - 450 k/06/17/2025 6:[address] [facility] LABMPV8.36.0 - 12.0 fL06/17/2025 6:[address] [facility] LABNeutrophils %6636 - 66 %06/17/2025 6:[address] [facility] LABLymphocytes %22(L)24 - 44 %06/17/2025 6:[address] [facility] LABMonocytes %82 - 11 %06/17/2025 6:[address] [facility] LABEosinophils %31 - 4 %06/17/2025 6:[address] [facility] LABBasophils %10 - 2 %06/17/2025 6:[address] [facility] LABNeutrophils Absolute4.601.8 - 7.7 k/06/17/2025 6:[address] [facility] LABLymphocytes Absolute1.501.0 - 4.8 k/06/17/2025 6:[address] [facility] LABMonocytes Absolute0.600.1 - 1.2 k/06/17/2025 6:[address] [facility] LABEosinophils Absolute0.200.0 - 0.4 k/uL06/17/2025 6:[address] [facility] LABBasophils Absolute0.100.0 - 0.2 k/uL06/17/2025 6:[address] [facility] LABSpecimen (Source)Anatomical Location / LateralityCollection Method / VolumeCollection TimeReceived Time BloodBLOOD SPECIMEN / Aupldvk0106/17/2025 6:53 AM EDT06/17/2025 6:54 AM EDT Narrative Authorizing ProviderResult TypeResult StatusMohammed Rakesh MDHEMATOLOGY ORDERABLESFinal ResultPerforming OrganizationAddressCity/State/ZIP CodePhone Number [address] [place] [address], [facility] [phone] [facility] [address] [place] [address], [facility] [phone] from Last 3 Months Insurance * Guarantor: Robert Moe TypeRelation to PatientDate of BirthPhone Billing AddressPersonal/VoakkiKuhn1975 [address] [address] * Guarantor: Robert Moe TypeRelation to PatientDate of BirthPhone Billing AddressPersonal/CkarydSfyi[address] [address] * Guarantor: Robert Moe TypeRelation to PatientDate of BirthPhone Billing AddressPersonal/GbrkfzPkma[address] [address] * Guarantor: Robert Moe TypeRelation to PatientDate of BirthPhone Billing AddressPersonal/NlcoyzGoeb1975 [facility] [address] MemberSubscriberPlan / Payer (Effective 2014-Present)Name:AbhiRobert Relation to Subscriber:SelfName:Robert Moe Romero Payer ID:Not on file Group ID:[id number] Type:Not on file Address: [address] [place] [facility] Advance Directives * Full Code (Latest Code Status on File) Date ActivatedDate InactivatedComments06/16/2025 6:09 PM06/18/2025 1:34 PM Care Teams Team MemberRelationshipSpecialtyStart DateEnd Date Derrick Ram MD [address] [place] [address] PCP - GeneralFamily Medicine12/06/18
--- OUTSIDE RECORDS SUMMARY | 2025-09-17 15:41 | XMS_ITS | Clinical Summary ---
Author Organization [facility] Healthcare Address [address] [place] [address] Care Team Providers Care Manufacturing Project Manager Name Role Phone Derrick Ram MD Primary Care Provider [phone] Allergies Active AllergyReactionsCriticalityNoted WgnfElfiwnvlZckqhhzWmxes39/10/2012 Medications MedicationSigDispense QuantityRefillsLast FilledStart DateEnd DateStatus gabapentin (Neurontin) 600 MG tablet Take 600 mg by mouth02/28/2023ctive lisinopril 5 MG tablet Take 1.5 tablets by mouth Daily07/06/2023ctive omeprazole (PriLOSEC) [address] capsule 03/28/2023ctive rOPINIRole XL (Requip XL) 6 MG 24 hr tablet Take 6 mg by mouth at ksknurl9106/05/2023ctive sertraline (Zoloft) 50 MG tablet Take 1 tablet by mouth Daily02/28/2023ctive cetirizine (ZyrTEC) 10 MG tablet Take by mouthActive acetaminophen (Tylenol 8 Hour) 650 MG ER tablet Take 650 mg by mouth every 8 (eight) hours if neededActive Active Problems ProblemNoted DateDiagnosed DateEnlarged tonsils and hhfnzelo77/21/2024Seasonal allergic viaezumr00/21/2024HTN (hypertension), oulgel1001/19/2024Overweight (BMI 25.0-29.9)01/19/20245456Cumemx42/12/2024Right upper quadrant pain12/01/2023eviated xusjuo7912/31/2014Lateral femoral cutaneous rqsvmocvrr21/21/2014Low back pain 05/27/2014RLS (restless legs syndrome)07/08/2759Qjargssy62/19/2014 Encounters DateTypeDepartmentCare CwvhKseuormqbrc59/03/2025Orders Only [facility] [address] [facility] [address] [place] [phone] Dorothy Carter MD from Last 3 Months Immunizations ImmunizationAdministration DatesNext Jose PARKER-CoV- Family History Medical HistoryRelationNameCommentsDiabetesFatherJoe PerryHypertensionFatherJoe PerryRelationNameStatusCommentsFatherJoe PerryAliveMotherAlive Social History Tobacco UseTypesPacks/DayYears UsedDateSmoking Tobacco: NeverSmokeless Tobacco: Never Tobacco Cessation:Counseling Given: Not Answered Alcohol UseStandard Drinks/WeekCommentsYes2 (1 standard drink = 0.6 oz pure alcohol)socialSex and Gender InformationValueDate RecordedSex Assigned at Not on fileLegal XotVmvt5302/01/2023 11:48 PM EDTGender IdentityNot on fileSexual OrientationNot on file Last Filed Vital Signs Vital SignReadingTime TakenCommentsBlood Pfsjkrco650/8207 8:10 AM EDT Ztfkh295906/10/2025 8:10 AM EDTTemperature--Respiratory Rate--Oxygen Saturation-- Inhaled Oxygen Concentration--Qzqckb367 kg (249 lb)06/10/2025 8:10 AM EDTHeight 198.1 cm (6' 6 )06/10/2025 8:10 AM EDTBody Mass Index28.7707 8:10 AM EDT Plan of Treatment DateTypeDepartmentCare Team (Latest Contact Info)Ithqhudlhxi70/26/2025 8:00 AM ESTOffice Visit [facility] [address] [facility] [address] [place] [address] Dorothy Carter MD [address] [facility] [address] [place] [address] Health MaintenanceDue DateLast DoneCommentsCT Admsbrsjokdq1976FIT-DNA 1976FIT1976FOBT1976 5697Noxxncfdxdtlg1976Influenza Vaccine (#1)4328Xpfynwwrwhd294Colorectal Cancer Screening 11/04/2034 Procedures Procedure NamePriorityDate/TimeAssociated DiagnosisCommentsSLEEP STUDY, HOME BY RPFSVHFwozhit33/13/2025 3:16 PM EDTfrom Last 3 Months Results * SLEEP STUDY, HOME BY ROTECH (07/02/2025 3:16 PM EDT)Anatomical Region LateralityModalityRadiographic Imaging Narrative Authorizing ProviderResult TypeResult StatusHilaesther Carter MDIMG XR PROCEDURES Final Result from Last 3 Months Insurance Care Teams Team MemberRelationshipSpecialtyStart DateEnd Date Derrick Ram MD [address] [place], [place] [id number] PCP - GeneralFamily Medicine07/07/23
--- OUTSIDE RECORDS SUMMARY | 2025-09-17 15:41 | XMS_ITS | Encounter Summary ---
Author Organization [facility] Address [address], [address] [place] [address] Care Team Providers Care Melter Clerk Name Role Phone Derrick Ram MD Primary Care Provider + Encounter Details DateTypeDepartmentCare Team (Latest Contact Info)Rdalgnanssj77/20/2025Orders Only [facility] [address] [place] [address] Viviana Granados, MULTIPLE KNIFE EDGE TRIMMER OPERATOR - DISEASE CASE MANAGER RN [address] [place] [address] RLS (restless legs syndrome) Social History Tobacco UseTypesPacks/DayYears UsedDateSmoking Tobacco: NeverSmokeless Tobacco: NeverAlcohol UseStandard Drinks/WeekCommentsNot Currently0 (1 standard drink = 0.6 oz pure alcohol)[place] UtilitiesAnswerDate RecordedIn the past 12 months has the electric, gas, oil, or water company threatened to shut off services in your home?No06/16/2025Overall Financial Resource Strain (CARDIA)AnswerDate Recorded How hard is it for you to pay for the very basics like food, housing, medical care, and heating?Not hard at all04/09/2024HQ-2AnswerDate RecordedPHQ-9 Total Xpzhg415Hunger Vital SignAnswerDate RecordedWithin the past 12 months, [...] steady place to sleep or slept in [facility] (including now)?No04/09/2024Housing Stability Vital SignAnswerDate RecordedIn the last 12 months, was there a time when you were not able to pay the mortgage or rent on time?No06/16/2025In the past 12 months, how many times have you moved where you were living? At any time in the past 12 months, were you homeless or living in a usp (including now)?No06/16/2025Food InsecurityAnswerDate RecordedWithin the past 12 months, you worried that your food would run out before you got the money to buy more.Within the past 12 months, the food you bought just didn't last and you didn't have money to get more.Interpersonal Safety Domain Source: IP Abuse ScreeningAnswerDate RecordedPhysical ekzdgYiuopg10/29/2025 Verbal crxrgVlicpm20/29/2025Emotional tzcuvOuqadj82/29/2025Financial abuseDenies 06/17/2025Sexual eujvdYzzedx15/29/2025Sex and Gender InformationValueDate RecordedSex Assigned at OewqaQhxq35/05/2025 9:17 AM EDTLegal IknOpth3612/30/2012 6:35 PM ESTGender LtmdbmhbTxus59/05/2025 9:17 AM EDTSexual OrientationStraight 07/25/2025 9:17 AM EDTdocumented as of this encounter Progress Notes * Almaz Dean - 09/08/2025 10:11 PM EDT PHARMACY REQUESTED REFILL documented in this encounter Plan of Treatment Not on file documented as of this encounter Visit Diagnoses Diagnosis RLS (restless legs syndrome) Restless legs syndrome (RLS) documented in this encounter Care Teams Team MemberRelationshipSpecialtyStart DateEnd Date Derrick Ram MD [address] [place] [address] PCP - GeneralFamily Medicine12/06/18documented as of this encounter
--- OUTSIDE RECORDS SUMMARY | 2025-09-17 15:41 | XMS_ITS | Clinical Summary ---
Author Organization [facility] Address [facility] [id number] [address] [place] [address] Care Team Providers Care Wool Shearer Name Role Phone Kenn Joy PA-C Primary Care Provider [phone] Allergies Active AllergyReactionsCriticalityNoted MdxrVscvxrncJyowenjHfdzd30/10/2012 Medications MedicationSigDispense QuantityRefillsLast FilledStart DateEnd DateStatus omeprazole (PriLOSEC) 20 mg capsule Take 1 capsule (20 mg total) by mouth every morning before breakfast.03/28/2023 Active fluticasone propionate (FLONASE) 50 mcg/actuation nasal spray Administer 2 sprays into each nostril in the morning.4Active acetaminophen (TYLENOL ARTHRITIS) 650 mg 8 hr tablet Take 1 tablet (650 mg total) by mouth every 8 (eight) hours as needed for pain. Active MAGNESIUM GLYCINATE ORAL Take by mouth.Active rOPINIRole XL (REQUIP XL) 4 mg 24 hr tablet Take 1 tablet (4 mg total) by mouth nightly.5Active cetirizine (ZyrTEC) 10 mg tablet Take 1 tablet (10 mg total) by mouth in the morning.Active gabapentin (NEURONTIN) 600 mg tablet Indications:RLS (restless legs syndrome)Take 1 tablet (600 mg total) by mouth nightly.5Active lisinopriL (PRINIVIL,ZESTRIL) 5 mg tablet Take 1 tablet (5 mg total) by mouth in the morning. 90 tablet 5Active sertraline (ZOLOFT) 50 mg tablet Take 1 tablet (50 mg total) by mouth in the morning. 90 tablet 5Active Active Problems No known active problems Encounters DateTypeDepartmentCare BazpYtnhxpljcfg81/16/2025Refill [facility]/Ryan Merino MD [address] [place] [phone] Kenn Joy PA-C 08/03/2025Results Follow-Up [facility]/Ryan Merino MD [address] [place] [phone] Kenn Joy PA-C Prostatic specific antigen screen, Hemoglobin A1c, Qnfwhmj9507/31/2025 9:00 AM EDT Office Visit [facility]/Ryan Merino MD [address] [place] [phone] Kenn Joy PA-C Hypertension, unspecified type (Primary Dx); RLS (restless legs syndrome); Lipid screening; Screening PSA (prostate specific antigen); Elevated kiwkofz1607/31/2025Travelfrom Last 3 Months Immunizations No known immunizations Family History Medical HistoryRelationNameCommentsHeart attackFatherCancerMaternal Grandfather COPDMotherCancerPaternal GrandmotherRelationNameStatusCommentsFatherAlive Maternal GrandfatherDeceasedMotherAlivePaternal GrandfatherDeceasedPaternal Grandmother Social History Tobacco UseTypesPacks/DayYears UsedDateSmoking Tobacco: NeverSmokeless Tobacco: Never Tobacco Cessation:Counseling Given: Not Answered Alcohol UseStandard Drinks/WeekCommentsYes0 (1 standard drink = 0.6 oz pure alcohol)OCCASIONALPHQ-2AnswerDate RecordedTotal Fukei2585ChildcareAnswer Date DxvmxretNgnmusotpAiyjlso94/12/2019EmploymentAnswerDate RecordedEmployment Gqozotc5305/01/2019Hunger ScreeningAnswerDate RecordedWithin the past 12 months we worried whether our food would run out before we got money to buy more.Never True07/31/2025Within the past 12 months the food we bought just didn't last and we didn't have money to get more.Never True07/31/2025Sex and Gender Information ValueDate RecordedSex Assigned at BirthNot on fileLegal FfmFkeu5906/23/2015 10:13 PM EDTGender IdentityNot on fileSexual OrientationNot on file Last Filed Vital Signs Vital SignReadingTime TakenCommentsBlood Oinsshem420/7209 8:59 AM EDT Vrckp501707/31/2025 8:59 AM FJXPpefhjxeztj27.7 ??C (98.1 ??F)07/31/2025 8:59 AM EDTRespiratory Qcbl822212/22/2024 2:01 PM ESTOxygen Udkbicovop21%07/31/2025 8:59 AM EDTInhaled Oxygen Concentration--Egxxxn987.4 kg (239 lb)07/31/2025 8:59 AM CYDVhgeic694.6 cm (6' 5 )07/31/2025 8:59 AM EDTBody Mass Index28.34007/31/2025 8:59 AM EDT Plan of Treatment DateTypeDepartmentCare Team (Latest Contact Info)Ddorquqduxc42/16/2025 2:30 PM ESTOffice Visit [facility]/Ryan Merino MD [address] [place] [phone] Kenn Joy, PAJoelC [address] [place] [address] Health MaintenanceDue DateLast DoneCommentsAdult BMI Follow Up Plan1994 DTaP,Tdap and Td Vaccines (1 - Tdap)1995COVID-19 Vaccine (2 - 2024- season)/04/2021Influenza Xjcxbhp0307/21/2025dult BMI Screening /09/2025Depression Yoelmowec06Tobacco Screening /0462Wcozffsclqo64/16/, 11/04/2024 Medical Devices Not on file Procedures Procedure NamePriorityDate/TimeAssociated DiagnosisCommentsTESTOSTERONE, FREE AND TOTAL UUIHEvdqcao61/11/2025 10:13 AM EDT Hypertension, unspecified type RLS (restless legs syndrome) WWNYXVKLxbglut61/11/2025 10:13 AM EDT Elevated glucose HEMOGLOBIN S0QHhnnemk71/11/2025 10:13 AM EDT Elevated glucose PROSTATIC SPECIFIC ANTIGEN PKMRVZFxlrplb42/11/2025 10:13 AM EDT Screening PSA (prostate specific antigen) PROVATION JOLBDZVAQJHAfqxlzl90/16/2024 11:13 AM EST from Last 3 Months or Most Recently Relevant to Health Maintenance Results * Prostatic specific antigen screen (07/31/2025 10:13 AM EDT)ComponentValueRef RangeTest MethodAnalysis TimePerformed AtPathologist SignaturePROSTATIC SPEC ANT0.430.00 - 4.00 ng/mL07/31/2025 6:02 PM [facility]Comment: The method used for this test is Stefan Deanslist DXI chemiluminescent immunoassay. Values obtained by different assay methods cannot be used interchangeably. Specimen (Source)Anatomical Location / LateralityCollection Method / Volume Collection TimeReceived TimeBloodVenous blood / UnknownVenipuncture / Unknown 07/31/2025 10:13 AM EDT07/31/2025 10:13 AM EDT Narrative Authorizing ProviderResult TypeResult StatusAndreangel SOLOMON BLOOD ORDERABLESFinal ResultPerforming OrganizationAddressCity/State/ZIP CodePhone Number [facility] [address] [place] [address], * Insulin (07/31/2025 10:13 AM EDT)ComponentValueRef RangeTest MethodAnalysis TimePerformed AtPathologist VknbwqitrNPPNHAC59.241.00 - 23.00 uIU/mL07/31/2025 6:20 PM [facility] LABORATORYSpecimen (Source)Anatomical Location / LateralityCollection Method / VolumeCollection TimeReceived Time BloodVenous blood / UnknownVenipuncture / Rlgtzwo4407/31/2025 10:13 AM EDT 07/31/2025 10:[address] [facility] - 07/31/2025 6:20 PM EDT Ref. range is for FASTING NON-DIABETIC POPULATION. Authorizing ProviderResult TypeResult StatusAndreangel SOLOMON BLOOD ORDERABLESFinal ResultPerforming OrganizationAddressCity/State/ZIP CodePhone Number [facility] [address] [place] [address], * Testosterone, Free/Total, Male (07/31/2025 10:13 AM EDT)ComponentValueRef RangeTest MethodAnalysis TimePerformed AtPathologist SignatureTESTOSTERONE,TOT 575.8300.0 - 890.0 ng/dL08/09/2025 11:28 PM EDTARUP LABORATORIESComment: This test was developed and its performance characteristics determined by [facility]. It has not been cleared or approved by the US Food and Drug Administration. This test was performed in a CLIA certified laboratory and is intended for clinical purposes. TESTOSTERONE,F,AD,ML50.347.0 - 244.0 pg/mL08/09/2025 11:28 PM EDTAP LABORATORIESComment: INTERPRETIVE INFORMATION: Testosterone, Free by Dialysis This laboratory reference method for the direct measurement of free testosterone is not recommended when low testosterone concentrations, such as those found in children and cisgender females, are expected. For these individuals, the preferred test is Testosterone, Free (Adult Females, Children, or Individuals on Testosterone-Suppressing Hormone Therapy) ([employer] test code 4736222). For individuals on testosterone hormone therapy, refer to cisgender male reference intervals. No reference intervals have been established for males younger than 18 years or for cisgender females. For a complete set of all established reference intervals, refer to [employer]/Tests/Pub/[id number]. This test was developed and its performance characteristics determined by [facility]. It has not been cleared or approved by the [place] Food and Drug Administration. This test was performed in a CLIA certified laboratory and is intended for clinical purposes. Performed By: [facility] [address] [place] [address] Copy Chaser: Wilfredo Earl MD, PhD CLIA Number: [id number] Specimen (Source)Anatomical Location / LateralityCollection Method / Volume Collection TimeReceived TimeBloodVenous blood / UnknownVenipuncture / Unknown 07/31/2025 10:13 AM EDT07/31/2025 10:13 AM EDT Narrative Authorizing ProviderResult TypeResult StatusAndreangel PEREZ-BRIAN BLOOD ORDERABLESFinal ResultPerforming OrganizationAddressCity/State/ZIP CodePhone Number [email or web address] [address] [place] [address], * Hemoglobin A1c (07/31/2025 10:13 AM EDT)ComponentValueRef RangeTest Method Analysis TimePerformed AtPathologist SignatureHEMOGLOBIN A1C5.54.4 - 5.6 % 07/31/2025 4:54 PM [facility]ATORYComment: ?ADA Guidelines ?Result ?HgbA1c ? Normal : ? less than 5.7 % ? Prediabetes : ?5.7 % ??to 6.4 % Diabetes : > 6.4 % ?Use with caution in patients with abnormal hemoglobin variants as ??the half-life of red blood cells and in vivo glycation rates are ??affected. EST. AVERAGE UWTPBIF955cf/dL07/31/2025 4:54 PM [facility] LABORATORYSpecimen (Source)Anatomical Location / LateralityCollection Method / VolumeCollection TimeReceived TimeBloodVenous blood / UnknownVenipuncture / Vqycwpm2807/31/2025 10:13 AM EDT07/31/2025 10:13 AM EDT Narrative Authorizing ProviderResult TypeResult StatusKenn SOLOMON BLOOD ORDERABLESFinal ResultPerforming OrganizationAddressCity/State/ZIP CodePhone Number [facility] [address] [place] [address], [place] [phone] * Colonoscopy Report (11/04/2024 11:13 AM EST)Specimen (Source)Anatomical Location / LateralityCollection Method / VolumeCollection TimeReceived Time Narrative SYSTEMGENERATED, DOCUMENTATION - 11/04/2024 11:13 AM EST This order has been auto-finalized for image and report archival in PACs. *For full report details, please reach out to your physician. ??This image is visible to you in MyChart.* Authorizing ProviderResult TypeResult StatusMichael E Grillis DOIMG OR IMG ORDERABLESFinal Result from Last 3 Months or Most Recently Relevant to Health Maintenance Insurance [address] [place] [address] Care Teams Team MemberRelationshipSpecialtyStart DateEnd Date Kenn Joy PA-C [address] [place] [address] PCP - GeneralInternal Medicine07/31/25
== END 2025-09-17 15:40 | disposition home or self-care (01) ==
LOC: FHNEUROLOG 15:39
PROVIDERS: Visit Provider Psychiatry & Neurology Neurology
DX: G47.33 Obstructive sleep apnea (adult) (pediatric) (principal); R06.83 Snoring; G47.10 Hypersomnia, unspecified
CPT/HCPCS: G0463